=== PATIENT | female | born 1955 | race Caucasian/White ===

== ENCOUNTER → 2017-01-20 | Outpatient (CLI) | payer BC ==
[2017-01-20 08:34] LABS: CHLORIDE,CL 110 mmol/L (98-110); SODIUM,NA 141 mmol/L (136-146)
== END ==
LOC: MW.CHIM 07:33
PROVIDERS: ATTEND Internal Medicine
DX: G25.81 Restless legs syndrome (principal); R10.9 Unspecified abdominal pain; D64.9 Anemia, unspecified
CPT/HCPCS: 36415; 80053; 83540; 85025

== ENCOUNTER 2017-07-15 10:36 | Day surgery (SDC) | payer BC ==
[~2017-07-15 10:36] MED LIST: Acetaminophen/Codeine 300-30 MG Tab PO PRN; Bupivacaine 0.25% 10 ML SDV ONE; Lactated Ringers 1,000 ML IV SCH; ceFAZolin 1 GM in Premix Bag 1 BAG IV SCH
--- NOTE | 2017-07-15 11:16 | PCM.PREANE ---
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 - Review of Systems General: No Symptoms Pulmonary: No Symptoms Cardiovascular: No Symptoms Gastrointestinal: Other (PUD and GERD) Neurological: Difficulty Walking Other: Reports: Anxiety - Physical Assessment NPO Status Date: 07/14/17 NPO Status Time: 22:00 Height: 5 ft 7 in Weight: 179 lb ASA Class: 2 Mental Status: Alert & Oriented x3 Airway Class: Mallampati = 1 Dentition: Reports: Normal Dentition (protuberant upper frontals) Thyro-Mental Finger Breadths: 3 Mouth Opening Finger Breadths: 3 ROM/Head Extension: Full Lungs: Clear to Auscultation, Normal Respiratory Effort Cardiovascular: Regular Rate, Regular Rhythm, No Murmurs - Allergies Allergies/Adverse Reactions: Allergies Allergy/AdvReac Type Severity Reaction Status Date / Time aspirin Allergy Hives Verified 07/10/17 16:59 ibuprofen Allergy Hives Verified 07/10/17 16:59 - Blood Blood Available: No Product(s) Available: None - Anesthesia Plan Pre-Op Medication Ordered: None - Acknowledgements Anesthesia Type Planned: General Anesthesia (LMA vs OETT) Pt an Appropriate Candidate for the Planned Anesthesia: Yes Alternatives and Risks of Anesthesia Discussed w Pt/Guardian: Yes Pt/Guardian Understands and Agrees with Anesthesia Plan: Yes PreAnesthesia Questionnaire Other HEENT History: wears glasses Cardiovascular History: Reports: High Cholesterol Other Respiratory History: hx: Former smoker, QUIT '1988 Gastrointestinal History: Reports: GERD, PUD, Other (See Below) Other Gastrointestinal History: hx of Barretts Esophagus Musculoskeletal History: Reports: Arthritis, Fracture Other Musculoskeletal History: hx of fx arm Neurological History: Reports: Other (See Below) Other Neuro History: hx of motion sickness Psychiatric History: Reports: Anxiety - Past Surgical History Head Surgeries/Procedures: Reports: None HEENT Surgical History: Reports: Adenoidectomy, Tonsillectomy Female Surgical History: Reports: Hysterectomy, Other (See Below) Other Female Surgeries/Procedures: Bladder Entercystoplasty Musculoskeletal Surgical History: Reports: Other (See Below) Other Musculoskeletal Surgeries/Procedures:: ACL REPAIR LEFT KNEE - SUBSTANCE USE Smoking Status *Q: Former Smoker Days Per Week of Alcohol Use: 0 Recreational Drug Use History: No - HOME MEDS Home Medications: Home Meds ALPRAZolam [Alprazolam] 0.25 mg PO DAILY MDD 0.50 03/22/15 [History] Calcium Carbonate [Calcium] 500 mg PO DAILY 03/22/15 [History] Cetirizine HCl 10 mg PO DAILY 03/22/15 [History] Fish Oil/Borage/Flax/Om3,6,9#1 [[place] 3-6-9 Complex Softgel] 1 tab PO DAILY 05/29 [History] Magnesium Oxide [Magnesium] 500 mg PO BID 03/22/15 [History] Multivitamin [Multi-Vitamin Daily] 1 tab PO DAILY 03/22/15 [History] RABEprazole Sodium [Aciphex] 20 mg PO ACBREAKFAST 03/22/15 [History] Simvastatin 5 mg PO DAILY 03/22/15 [History] Escitalopram Oxalate 5 mg PO DAILY 07/10/17 [History] Ferrous Gluconate [Iron] 240 mg PO DAILY 07/10/17 [History] rOPINIRole HCl [Requip] 0.5 mg PO BEDTIME 07/10/17 [History] - CURRENT (IN HOUSE) MEDS Current Meds: Current Medications Acetaminophen/Codeine Phosphate (Tylenol With Codeine No.3 300mg/30mg) 1 - 2 tab PO Q6H PRN PRN Reason: Pain Cefazolin Sodium/Dextrose 1 gm (/ Premix) 50 mls @ 100 mls/hr IV ONCALL [facility] Lactated Ringer's (Ringers, Lactated) 1,000 mls @ 100 mls/hr IV ASDIRECTED [facility] Discontinued Medications Bupivacaine HCl (Sensorcaine-Mpf 0.25%) Confirm Administered Dose 10 ml .ROUTE .STK-MED ONE Stop: 07/15/17 07:54
[2017-07-15] MEDS ORDERED: Ondansetron 4 MG/2 ML SDV ONE (11:33)
[2017-07-15] MEDS ORDERED: Propofol 200 MG/20 ML SDV ONE (11:33)
[2017-07-15] MEDS ORDERED: Midazolam 1 MG/ML 2 ML SDV ONE (11:33)
[2017-07-15] MEDS ORDERED: fentaNYL 250 MCG/5 ML SDV ONE (11:34)
[2017-07-15] MEDS ORDERED: Dexamethasone 4 MG/ML 5 ML MDV ONE (12:08)
[2017-07-15] MEDS ORDERED: ePHEDrine 50 MG/ML SDV ONE (12:18)
--- NOTE | 2017-07-15 12:55 | PCM.OPNOTE ---
- General Post-Op/Procedure Note Date of Surgery/Procedure: 07/15/17 Operative Procedure(s): HWR left distal femur and tibia Post-Op Diagnosis: Retained HW left femur and tibia Anesthesia Technique: General LMA Primary Surgeon: Michelle Odonnell [employer] Teacher: Sanjuanita Black in mLs: 5 Condition: Good Free Text/Narrative:: tt=0 min Unable to dictate op note immediately due to phone system down
--- NOTE | 2017-07-15 12:58 | PCM.POSTAN ---
POST ANESTHESIA ASSESSMENT - MENTAL STATUS Mental Status: Alert, Oriented - RESPIRATORY Respiratory Status: Respiratory Rate WNL, Airway Patent, O2 Saturation Stable - CARDIOVASCULAR CV Status: Pulse Rate WNL, Blood Pressure Stable - GASTROINTESTINAL GI Status: No Symptoms - PAIN Pain Score: 0 - POST OP HYDRATION Hydration Status: Adequate & Stable
--- NOTE | 2017-07-15 14:19 | PCM48HPAN ---
Post Anesthesia Note - EVALUATION WITHIN 48HRS OF ANESTHETIC Vital Signs in Normal Range: Yes Patient Participated in Evaluation: Yes Respiratory Function Stable: Yes Airway Patent: Yes Cardiovascular Function Stable: Yes Hydration Status Stable: Yes Pain Control Satisfactory: Yes Nausea and Vomiting Control Satisfactory: Yes Mental Status Recovered: Yes
[2017-07-15 15:49] VITALS: BP 132/74
--- NOTE | 2017-07-16 10:39 | OR ---
SURGEON: Michelle Odonnell MD DATE OF PROCEDURE: 07/15/2017 PREOPERATIVE DIAGNOSIS: Retained hardware, left distal femur and proximal tibia. POSTOPERATIVE DIAGNOSES: Retained hardware, left distal femur and proximal tibia. PROCEDURE: Hardware removal, left distal femur and proximal tibia. SUPER[employer]OR [employer] DEPARTMENT: Sanjuanita Black PA-C. ANESTHESIA: General. ESTIMATED BLOOD LOSS: 5 mL. TOURNIQUET TIME: 0 minutes. COMPLICATIONS: None. DVT PROPHYLAXIS: Not indicated. IMPLANTS USED: None. BRIEF HISTORY: Jade is a 62-year-old female, who has had complaint of progressive left knee pain. She underwent a left knee ACL reconstruction approximately 30 years ago and does have retained hardware from this. She has developed degenerative changes in the knee and is considering a total knee arthroplasty in the future. Due to the placement of the hardware, this would be difficult to perform a total knee arthroplasty. I recommended removal of the hardware in a staged procedure. Risks and goals of the procedure were discussed with the patient and were documented preoperatively. She agreed to proceed. DESCRIPTION OF PROCEDURE: The patient was properly identified and brought to the operating room. She was transferred from the OR cart and placed on the operating table in a supine position. General anesthesia was administered. After adequate anesthesia was obtained, a well-padded tourniquet was applied to the left lower extremity. The left lower extremity was then prepped in standard fashion using ChloraPrep solution. It was then sterilely draped. A time-out was performed to ensure correct site and procedure. Preoperative antibiotics were given. The surgical site had been marked preoperatively. Using the C-arm image intensifier, the position of the distal femoral screws were established. A small incision was made at the site of her previous incision. Subcutaneous tissues were dissected down. The screws were identified. The proximal screw was removed along with a large washer without difficulty. The other femoral screw was also removed in a similar fashion. We then turned our attention to the tibial screw. Again, this was identified with the C-arm image intensifier. A small incision was made and the subcutaneous tissues were dissected. The tibial screw had some bony overgrowth, which was resected with a small osteotome. The screw was then removed without difficulty. Final C-arm images confirmed removal of the hardware. The wounds were then copiously irrigated with saline solution. The subcutaneous tissues were closed with 3-0 Vicryl and the skin was closed with kati. Xeroform gauze was placed over the wound and a bulky dressing was applied. She was awakened from her anesthetic and transferred back to the operating room cart. She was brought to recovery room in stable condition. All needle and sponge counts were correct. LASHAE GRISSOM /[id number]
--- NOTE | 2017-07-20 16:49 | CR ---
EXAMINATION: Left knee HISTORY: Hardware removal COMPARISON: 02/10/2017 TECHNIQUE: Single view FINDINGS/IMPRESSION: Postoperative control film demonstrates interval removal of distal femoral and p roximal tibial screws.
== END 2017-07-15 14:30 | disposition home or self-care (01) ==
LOC: MW.SDS 10:36
PROVIDERS: ATTEND Orthopaedic Surgery
DX: T84.84XA Pain due to internal orthopedic prosthetic devices, implants and grafts, initial encounter (principal); F41.9 Anxiety disorder, unspecified; K21.9 Gastro-esophageal reflux disease without esophagitis; E66.9 Obesity, unspecified; G43.109 Migraine with aura, not intractable, without status migrainosus; M17.32 Unilateral post-traumatic osteoarthritis, left knee; G25.81 Restless legs syndrome; G47.30 Sleep apnea, unspecified; E78.00 Pure hypercholesterolemia, unspecified; Z87.891 Personal history of nicotine dependence; Z86.010 Personal history of colon polyps; Z79.899 Other long term (current) drug therapy; Z88.6 Allergy status to analgesic agent; Z90.710 Acquired absence of both cervix and uterus; Z90.89 Acquired absence of other organs; Z98.890 Other specified postprocedural states; Z68.28 Body mass index [BMI] 28.0-28.9, adult
CPT/HCPCS: 20680; J1100; J2250; J2405; J3010; 01400; 76000; 76000-26; 88300; J2704

== ENCOUNTER 2017-11-16 06:49 | Inpatient (IN) | payer BC ==
[~2017-11-16 06:49] MED LIST changes: +Acetaminophen 1,000 MG in Premix Bag 1 BAG IV SCH; -Acetaminophen/Codeine 300-30 MG Tab PO PRN; -Bupivacaine 0.25% 10 ML SDV ONE; +Famotidine 20 MG/2 ML SDV IVPUSH SCH; +Ketorolac 30 MG/ML SDV IVPUSH SCH; -Lactated Ringers 1,000 ML IV SCH; +Scopolamine 1.5 MG Transdermal Patch TRDERM SCH; -ceFAZolin 1 GM in Premix Bag 1 BAG IV SCH; +oxyCODONE ER 20 MG TAB.ER PO SCH
[2017-11-16] MEDS: Lactated Ringers 1,000 ML IV SCH ×2 (07:29→22:16)
[2017-11-16] MEDS ORDERED: Lidocaine 2% 5 ML SDV ONE (07:38)
[2017-11-16] MEDS ORDERED: Propofol 200 MG/20 ML SDV ONE ×2 (07:38→09:12)
[2017-11-16] MEDS ORDERED: Midazolam 1 MG/ML 2 ML SDV ONE (07:39)
[2017-11-16] MEDS ORDERED: ePHEDrine 50 MG/ML SDV ONE (07:39)
[2017-11-16] MEDS ORDERED: fentaNYL 100 MCG/2 ML SDV ONE ×2 (07:39→08:54)
--- NOTE | 2017-11-16 07:44 | PCM.PREANE ---
Preanesthetic Assessment - Anesthesia/Transfusion/Family Hx Anesthesia History: Prior Anesthesia Reaction Type of Anesthesia Reaction: Excessive Nausea/Vomiting Other Type of Anesthesia Reaction Comment: Denies any known problem in past, "Yes to Motion Sickness" Family History of Anesthesia Reaction: No Transfusion History: No Prior Transfusion(s) Intubation History: Unknown - Review of Systems General: No Symptoms Pulmonary: No Symptoms Cardiovascular: No Symptoms Gastrointestinal: No Symptoms Neurological: No Symptoms Other: Reports: None - Physical Assessment NPO Status Date: 11/17/17 Height: 1.7 m Weight: 80.739 kg ASA Class: 2 Mental Status: Alert & Oriented x3 Airway Class: Mallampati = 2 Dentition: Reports: Normal Dentition ROM/Head Extension: Full Lungs: Clear to Auscultation, Normal Respiratory Effort Cardiovascular: Regular Rate, Regular Rhythm - Allergies Allergies/Adverse Reactions: Allergies Allergy/AdvReac Type Severity Reaction Status Date / Time aspirin Allergy Hives Verified 11/11/17 08:47 ibuprofen Allergy Hives Verified 11/11/17 08:47 - Acknowledgements Anesthesia Type Planned: Spinal (note: hives from all NSAIDS and aspirin, NO TORADOL) Pt an Appropriate Candidate for the Planned Anesthesia: Yes Alternatives and Risks of Anesthesia Discussed w Pt/Guardian: Yes Pt/Guardian Understands and Agrees with Anesthesia Plan: Yes PreAnesthesia Questionnaire Other HEENT History: wears glasses Cardiovascular History: Reports: High Cholesterol Other Respiratory History: hx: Former smoker, QUIT '1988 Gastrointestinal History: Reports: GERD, PUD, Other (See Below) Other Gastrointestinal History: hx of Barretts Esophagus Musculoskeletal History: Reports: Arthritis, Fracture Other Musculoskeletal History: hx of fx arm Neurological History: Reports: Other (See Below) Other Neuro History: hx of motion sickness Psychiatric History: Reports: Anxiety Endocrine/Metabolic History: Reports: None Hematologic History: Reports: None Immunologic History: Reports: None Oncologic (Cancer) History: Reports: None Dermatologic History: Reports: None - Past Surgical History Other Musculoskeletal Surgeries/Procedures:: ACL REPAIR LEFT KNEE - SUBSTANCE USE Smoking Status *Q: Former Smoker Days Per Week of Alcohol Use: 0 Recreational Drug Use History: No - HOME MEDS Home Medications: Home Meds ALPRAZolam [Alprazolam] 0.25 mg PO DAILY MDD 0.50 03/22/15 [History] Cetirizine HCl 10 mg PO DAILY 03/22/15 [History] Fish Oil/Borage/Flax/Om3,6,9#1 [[place] 3-6-9 Complex Softgel] 1 tab PO DAILY 05/29 [History] Magnesium Oxide [Magnesium] 500 mg PO BID 03/22/15 [History] Multivitamin [Multi-Vitamin Daily] 1 tab.chew CHEW DAILY 03/22/15 [History] RABEprazole Sodium [Aciphex] 20 mg PO ACBREAKFAST 03/22/15 [History] Simvastatin 5 mg PO DAILY 03/22/15 [History] Escitalopram Oxalate 5 mg PO DAILY 07/10/17 [History] Ferrous Gluconate [Iron] 240 mg PO DAILY 07/10/17 [History] rOPINIRole HCl [Requip] 2 tab PO BEDTIME 07/10/17 [History] Ca Carbonate/Vitamin D3/Vit K [Calcium + D Soft Chewable Tab] 1 tab.chew CHEW DAILY 11/11/17 [History] - CURRENT (IN HOUSE) MEDS Current Meds: Current Medications Famotidine (Pepcid) 40 mg IVPUSH ONARRIVE [facility] Last Admin: 11/16/17 07:29 Dose: 40 mg Acetaminophen 1,000 mg/ Premix 100 mls @ 400 mls/hr IV ONARRIVE [facility] Last Admin: 11/16/17 07:28 Dose: 400 mls/hr Cefazolin Sodium/Dextrose 2 gm (/ Premix) 50 mls @ 100 mls/hr IV ONCALL [facility] Ropivacaine 49.25 ml/Ketorolac Tromethamine 30 mg/Epinephrine HCl 0.5 mg/ Clonidine HCl 80 mcg/ Sodium Chloride 100 mls @ 50 mls/sec INJECT ASDIRECTED [facility] Lactated Ringer's (Ringers, Lactated) 1,000 mls @ 100 mls/hr IV ASDIRECTED [facility] Last Admin: 11/16/17 07:29 Dose: 100 mls/hr Tranexamic Acid 4,000 mg/ (Sodium Chloride) 140 mls @ 600 mls/hr IV ASDIRECTED [facility] Ketorolac Tromethamine (Toradol) 30 mg IVPUSH ONARRIVE [facility] Last Admin: 11/16/17 07:29 Dose: 30 mg Oxycodone HCl (Oxycontin) 20 mg PO ONARRIVE [facility] Last Admin: 11/16/17 07:29 Dose: 20 mg Scopolamine (Transderm-Scop) 1.5 mg TRDERM ONARRIVE [facility] Last Admin: 11/16/17 07:28 Dose: 1.5 mg Discontinued Medications Ephedrine Sulfate (Ephedrine Sulfate) Confirm Administered Dose 50 mg .ROUTE .STK-MED ONE Stop: 11/16/17 07:40 Fentanyl (Sublimaze) Confirm Administered Dose 100 mcg .ROUTE .STK-MED ONE Stop: 11/16/17 07:40 Lidocaine (Xylocaine-Mpf 2%) Confirm Administered Dose 10 ml .ROUTE .STK-MED ONE Stop: 11/16/17 07:39 Midazolam HCl (Versed 1 Mg/Ml) Confirm Administered Dose 2 mg .ROUTE .STK-MED ONE Stop: 11/16/17 07:40 Propofol (Diprivan 20 Ml) Confirm Administered Dose 400 mg .ROUTE .STK-MED ONE Stop: 11/16/17 07:39 Tranexamic Acid (Cyklokapron) Confirm Administered Dose 4,000 mg .ROUTE .STK- MED ONE Stop: 11/16/17 07:23
[2017-11-16] MEDS ORDERED: ceFAZolin 2 GM in Premix Bag 1 BAG IV SCH (08:00)
[2017-11-16] MEDS ORDERED: Ropivacaine 49.25 ML, Ketorolac 30 MG, EPINEPHrine 0.5 MG, cloNIDine 80 MCG in Sodium C... INJECT SCH (08:00)
[2017-11-16] MEDS ORDERED: Tranexamic Acid 4,000 MG in Sodium Chloride 0.9% 100 ML IV SCH (08:00)
[2017-11-16] MEDS ORDERED: fentaNYL 100 MCG/2 ML SDV IVPUSH PRN ×2 (08:42→09:36)
[2017-11-16] MEDS ORDERED: Ropivacaine 49.25 ML, EPINEPHrine 0.5 MG, cloNIDine 80 MCG in Sodium Chloride 0.9% 48.4... INJECT SCH (08:45)
[2017-11-16] MEDS ORDERED: Aluminum Hydroxide/Magnesium Hydroxide/Simethicone Susp 30 ML Cup PO PRN (08:49)
[2017-11-16] MEDS ORDERED: Bisacodyl 10 MG Supp RECTAL PRN (08:49)
[2017-11-16] MEDS ORDERED: diphenhydrAMINE 25 MG Cap PO PRN (08:49)
[2017-11-16] MEDS ORDERED: Ferrous Sulfate 325 MG Tab PO SCH (09:00)
[2017-11-16] MEDS ORDERED: Morphine PF 30 MG/30 ML PCA Vial IV SCH (09:00)
[2017-11-16] MEDS ORDERED: HYDROmorphone 2 MG/ML Syringe IVPUSH ONE (09:36)
--- NOTE | 2017-11-16 11:04 | PCM.OPNOTE ---
- General Post-Op/Procedure Note Date of Surgery/Procedure: 11/16/17 Operative Procedure(s): L TKA Post-Op Diagnosis: DJD left knee Anesthesia Technique: Moderate Sedation, Spinal Primary Surgeon: Michelle Odonnell Inspector [employer]: Airam Enriquez in mLs: 50 Condition: Good Free Text/Narrative:: tt=55 min #[id number] Intake & Output 11/15/17 11/16/17 11/16/17 22:59 06:59 14:59 Output Total 600 Balance -600
[2017-11-16] MEDS: Calcium Carbonate/Vitamin D3 1500 MG-400 Units Tab PO SCH (14:28)
[2017-11-16] MEDS: Docusate Sodium 100 MG Cap PO SCH ×2 (14:28→20:49)
[2017-11-16] MEDS: Fish Oil/Omega-3 Fatty Acids 1 Gm Cap PO SCH (14:28)
[2017-11-16] MEDS: Multivitamin Tab PO SCH (14:29)
[2017-11-16] MEDS: Magnesium Oxide 400 MG Tab PO SCH ×2 (14:29→20:49)
[2017-11-16] MEDS: Simvastatin 10 MG Tab PO SCH (14:29)
[2017-11-16] MEDS: Cetirizine 10 MG Tab PO SCH (14:29)
[2017-11-16] MEDS: Escitalopram 10 MG Tab PO SCH (14:29)
[2017-11-16] MEDS: ALPRAZolam 0.25 MG Tab PO SCH (14:29)
[2017-11-16] MEDS: Acetaminophen 1,000 MG in Premix Bag 1 BAG IV SCH ×2 (14:34→20:45)
--- NOTE | 2017-11-16 16:34 | CR ---
EXAMINATION: Left knee HISTORY: TKA COMPARISON: MRI dated 09/15/2017 TECHNIQUE: 2 views FINDINGS/IMPRESSION: Left total hardware is demonstrated in good position and alignment. Operative so ft tissue changes are noted.
[2017-11-16] MEDS: Ondansetron 4 MG/2 ML SDV IV PRN (16:40)
[2017-11-16] MEDS: ceFAZolin 2 GM in Premix Bag 1 BAG IV SCH (16:44)
[2017-11-16] MEDS: oxyCODONE 5 MG Tab PO PRN ×2 (16:58→22:12)
[2017-11-16] MEDS ORDERED: Acetaminophen/oxyCODONE 325-5 MG Tab ONE (18:58)
[2017-11-16] MEDS ORDERED: oxyCODONE ER 20 MG TAB.ER PO SCH (21:00)
[2017-11-16] MEDS ORDERED: rOPINIRole 0.5 MG Tab PO SCH (21:00)
[2017-11-16] MEDS: rOPINIRole 1 MG Tab PO SCH (21:43)
[2017-11-17] MEDS: ceFAZolin 2 GM in Premix Bag 1 BAG IV SCH (00:40)
[2017-11-17] MEDS: Ondansetron 4 MG/2 ML SDV IV PRN ×2 (01:20→07:22)
[2017-11-17] MEDS: Acetaminophen 1,000 MG in Premix Bag 1 BAG IV SCH (01:23)
[2017-11-17] MEDS: oxyCODONE 5 MG Tab PO PRN (05:22)
[2017-11-17] MEDS: Omeprazole 20 MG Cap.CR PO SCH (07:08)
[2017-11-17] MEDS ORDERED: Promethazine 25 MG/ML SDV IM PRN (07:59)
[2017-11-17] MEDS ORDERED: Morphine 10 MG/ML Syringe IVPUSH PRN (08:00)
[2017-11-17] MEDS: Fish Oil/Omega-3 Fatty Acids 1 Gm Cap PO SCH (08:04)
--- NOTE | 2017-11-17 08:04 | PCM.SURGPN ---
<Airam Enriquez R - Last Filed: 11/17/17 08:00> - General Info Date of Service: 11/17/17 Date of Surgery/Procedure: 11/16/17 POD#: 1 Functional Status: Denies: Pain Controlled, Tolerating Diet - Review of Systems Gastrointestinal: Reports: Nausea. Denies: Vomiting Musculoskeletal: Reports: Leg Pain Systems Review Comment:: pt resting in bed c/o LLE pain and nausea has not asked for much pain medication because of nausea zofran is helpful but still nauseated has not eaten since yesterday still looking for d/ch to home today - Patient Data Vitals - Most Recent: Last Vital Signs Temp 98.3 F 11/17/17 04:00 Pulse 67 11/17/17 04:00 Resp 16 11/17/17 04:00 BP 120/71 11/17/17 04:00 Pulse Ox 96 11/17/17 04:00 Weight - Most Recent: 80.73 kg I&O - Last 24 Hours: Intake & Output 11/16/17 11/17/17 11/17/17 22:59 06:59 14:59 Intake Total 1520 50 Output Total 1175 Balance 345 50 Lab Results Last 24 Hrs: Laboratory Results - last 24 hr 11/16/17 11/17/17 Range/Units 07:50 06:33 Hgb 12.5 (12.0-16.0) g/dL Hct 37.7 (36.0-46.0) % Blood Type A POSITIVE Antibody Screen NEGATIVE Med Orders - Current: Current Medications Al Hydroxide/Mg Hydroxide (Mag-Al Plus) 30 ml PO Q4H PRN PRN Reason: indigestion Alprazolam (Xanax) 0.25 mg PO DAILY [facility] Last Admin: 11/16/17 14:29 Dose: Not Given Apixaban (Eliquis) 2.5 mg PO DAILY [facility] Bisacodyl (Dulcolax) 10 mg RECTAL DAILY PRN PRN Reason: Constipation Calcium Carbonate (Caltrate 600+D 1500 Mg-400 Units) 1 tab PO DAILY [facility] Last Admin: 11/16/17 14:28 Dose: Not Given Cetirizine HCl (Zyrtec) 10 mg PO DAILY [facility] Last Admin: 11/16/17 14:29 Dose: Not Given Diphenhydramine HCl (Benadryl) 25 - 50 mg PO Q6H PRN PRN Reason: Itching Docusate Sodium (Colace) 100 mg PO BID [facility] Last Admin: 11/16/17 20:49 Dose: 100 mg Escitalopram Oxalate (Lexapro) 5 mg PO DAILY [facility] Last Admin: 11/16/17 14:29 Dose: Not Given Famotidine (Pepcid) 40 mg IVPUSH ONARRIVE [facility] Last Admin: 11/16/17 07:29 Dose: 40 mg Fentanyl (Sublimaze) 50 mcg IVPUSH Q5M PRN PRN Reason: Pain (severe 7-10) Stop: 11/17/17 08:42 Fentanyl (Sublimaze) 50 mcg IVPUSH Q5M PRN PRN Reason: Pain (severe 7-10) Stop: 11/17/17 09:36 Ferrous Sulfate (Ferrous Sulfate) 325 mg PO DAILY [facility] Fish Oil (Fish Oil) 1 gm PO DAILY [facility] Last Admin: 11/16/17 14:28 Dose: Not Given Acetaminophen 1,000 mg/ Premix 100 mls @ 400 mls/hr IV ONARRIVE [facility] Last Admin: 11/16/17 07:28 Dose: 400 mls/hr Cefazolin Sodium/Dextrose 2 gm (/ Premix) 50 mls @ 100 mls/hr IV ONCALL [facility] Last Admin: 11/16/17 16:44 Dose: 100 mls/hr Lactated Ringer's (Ringers, Lactated) 1,000 mls @ 100 mls/hr IV ASDIRECTED [facility] Last Admin: 11/16/17 22:16 Dose: 100 mls/hr Tranexamic Acid 4,000 mg/ (Sodium Chloride) 140 mls @ 600 mls/hr IV ASDIRECTED [facility] Ropivacaine 49.25 ml/Epinephrine HCl 0.5 mg/Clonidine HCl 80 mcg/ Sodium Chloride 99 mls @ 50 mls/min INJECT ASDIRECTED [facility] Magnesium Oxide (Magnesium Oxide) 400 mg PO BID [facility] Last Admin: 11/16/17 20:49 Dose: 400 mg Morphine Sulfate (Morphine Heel Padder 30 Mg In 30 Ml) 30 mg IV ASDIRECTED [facility] PRN Reason: Protocol Stop: 11/17/17 08:00 Last Admin: 11/16/17 11:22 Dose: 30 mg Morphine Sulfate (Morphine) 1 - 3 mg IVPUSH Q3H PRN PRN Reason: Pain Multivitamins/Minerals/Vitamin C (Tab-A-Fermin) 1 tab PO DAILY [facility] Last Admin: 11/16/17 14:29 Dose: Not Given Omeprazole (Omeprazole) 20 mg PO ACBREAKFAST [facility] Last Admin: 11/17/17 07:08 Dose: 20 mg Ondansetron HCl (Zofran) 4 mg IV Q6HR PRN PRN Reason: NAUSEA/VOMITING Last Admin: 11/17/17 07:22 Dose: 4 mg Oxycodone HCl (Oxycontin) 20 mg PO ONARRIVE [facility] Last Admin: 11/16/17 07:29 Dose: 20 mg Oxycodone HCl (Oxycodone) 5 - 10 mg PO Q4H PRN PRN Reason: Pain Stop: 11/17/17 08:00 Last Admin: 11/17/17 05:22 Dose: 5 mg Oxycodone/Acetaminophen (Percocet 325-5 Mg) 1 - 2 tab PO Q4H PRN PRN Reason: Pain Ropinirole HCl (Requip) 0.5 mg PO BEDTIME [facility] Last Admin: 11/16/17 21:43 Dose: 0.5 mg Scopolamine (Transderm-Scop) 1.5 mg TRDERM ONARRIVE [facility] Last Admin: 11/16/17 07:28 Dose: 1.5 mg Simvastatin (Zocor) 5 mg PO DAILY [facility] Last Admin: 11/16/17 14:29 Dose: Not Given Discontinued Medications Ephedrine Sulfate (Ephedrine Sulfate) Confirm Administered Dose 50 mg .ROUTE .STK-MED ONE Stop: 11/16/17 07:40 Fentanyl (Sublimaze) Confirm Administered Dose 100 mcg .ROUTE .STK-MED ONE Stop: 11/16/17 07:40 Fentanyl (Sublimaze) Confirm Administered Dose 100 mcg .ROUTE .STK-MED ONE Stop: 11/16/17 08:55 Ferrous Sulfate (Ferrous Sulfate) 32,358 mg PO DAILY [facility] Last Admin: 11/16/17 14:30 Dose: Not Given Hydromorphone HCl (Dilaudid) 0 mg IVPUSH ONETIME ONE Stop: 11/16/17 09:37 Last Admin: 11/16/17 14:29 Dose: Not Given Ropivacaine 49.25 ml/Ketorolac Tromethamine 30 mg/Epinephrine HCl 0.5 mg/ Clonidine HCl 80 mcg/ Sodium Chloride 100 mls @ 50 mls/sec INJECT ASDIRECTED [facility] Acetaminophen 1,000 mg/ Premix 100 mls @ 400 mls/hr IV Q6H [facility] Stop: 11/17/17 02:14 Last Admin: 11/17/17 01:23 Dose: 400 mls/hr Cefazolin Sodium/Dextrose 2 gm (/ Premix) 50 mls @ 100 mls/hr IV Q8H [facility] Stop: 11/17/17 01:29 Last Infusion: 11/17/17 01:15 Dose: Infused Ketorolac Tromethamine (Toradol) 30 mg IVPUSH ONARRIVE [facility] Last Admin: 11/16/17 07:29 Dose: 30 mg Lidocaine (Xylocaine-Mpf 2%) Confirm Administered Dose 10 ml .ROUTE .STK-MED ONE Stop: 11/16/17 07:39 Midazolam HCl (Versed 1 Mg/Ml) Confirm Administered Dose 2 mg .ROUTE .STK-MED ONE Stop: 11/16/17 07:40 Oxycodone HCl (Oxycontin) 20 mg PO Q12HR [facility] Last Admin: 11/16/17 20:49 Dose: 20 mg Oxycodone/Acetaminophen (Percocet 325-5 Mg) Confirm Administered Dose 2 tab .ROUTE .STK-MED ONE Stop: 11/16/17 18:59 Last Admin: 11/16/17 19:03 Dose: Not Given Propofol (Diprivan 20 Ml) Confirm Administered Dose 400 mg .ROUTE .STK-MED ONE Stop: 11/16/17 07:39 Propofol (Diprivan 20 Ml) Confirm Administered Dose 200 mg .ROUTE .STK-MED ONE Stop: 11/16/17 09:13 Ropinirole HCl (Requip) 0.5 mg PO BEDTIME [facility] Tranexamic Acid (Cyklokapron) Confirm Administered Dose 4,000 mg .ROUTE .STK- MED ONE Stop: 11/16/17 07:23 - Exam Wound/Incisions: Dressing Dry and Intact General: Alert, Oriented Cardiovascular: Regular Rate, Regular Rhythm Extremities: Other (LLE - at/ehl/gastroc 5/5, dp 2+, sensation intact distally) Physical Findings Comment:: vss, afeb uo 1800+mL hgb 12.5 - Problem List Review Problem List Initiated/Reviewed/Updated: Yes - My Orders Last 24 Hours: Active Orders 24 hr Category Date Time Status Dressing Change [Wound Care] [RC] Q12H Care 11/16/17 08:49 Active Insert Urinary Catheter [OM.PC] Q24H Care 11/16/17 08:00 Ordered Intake and Output [RC] ASDIRECTED Care 11/16/17 08:49 Active Neurovascular Check [RC] Q2HR Care 11/16/17 08:49 Active Notify Provider Vital Signs [RC] ASDIRECTED Care 11/16/17 08:49 Active RT Incentive Spirometry [RC] ASDIRECTED Care 11/16/17 08:49 Active Vital Signs [RC] Q4H Care 11/16/17 08:49 Active PT Evaluation and Treatment [CONS] Routine Cons 11/16/17 08:48 Active HEMOGLOBIN/HEMATOCRIT,HH [HEME] DAILY Lab 11/18/17 06:00 Ordered HEMOGLOBIN/HEMATOCRIT,HH [HEME] DAILY Lab 11/19/17 06:00 Ordered ALPRAZolam [Xanax] Med 11/16/17 09:00 Active 0.25 mg PO DAILY Acetaminophen/oxyCODONE [Percocet 325-5 MG] Med 11/17/17 08:00 Active 1 - 2 tab PO Q4H PRN Alum Hydrox/Mag Hydrox/Simeth [Mag-Al Plus] Med 11/16/17 08:49 Active 30 ml PO Q4H PRN Apixaban [Eliquis] Med 11/17/17 09:00 Active 2.5 mg PO DAILY Bisacodyl [Dulcolax] Med 11/16/17 08:49 Active 10 mg RECTAL DAILY PRN Calcium Carbonate/Vitamin D3 [Caltrate 600+D 1500 MG- Med 11/16/17 09:00 Active 400 Units] 1 tab PO DAILY Cetirizine [ZyrTEC] Med 11/16/17 09:00 Active 10 mg PO DAILY Docusate Sodium [Colace] Med 11/16/17 09:00 Active 100 mg PO BID Escitalopram [Lexapro] Med 11/16/17 09:00 Active 5 mg PO DAILY Ferrous Sulfate Med 11/17/17 09:00 Active 325 mg PO DAILY Fish Oil/Hensley-3 Fatty Acids [Fish Oil] Med 11/16/17 09:00 Active 1 gm PO DAILY Magnesium Oxide Med 11/16/17 09:00 Active 400 mg PO BID Morphine Med 11/17/17 08:00 Active 1 - 3 mg IVPUSH Q3H PRN Morphine PF [Morphine GENERAL I [employer] 30 MG in 30 ML] Med 11/16/17 09:00 Active 30 mg IV ASDIRECTED Multivitamins [Tab-A-Fermin] Med 11/16/17 09:00 Active 1 tab PO DAILY Omeprazole Med 11/17/17 07:30 Active 20 mg PO ACBREAKFAST Ondansetron [Zofran] Med 11/16/17 08:49 Active 4 mg IV Q6HR PRN Promethazine [Phenergan] Med 11/17/17 07:59 Ordered 25 mg IM Q6H PRN Ropivacaine [Naropin 0.2%] 49.25 ml Med 11/16/17 08:45 Active EPINEPHrine [Adrenalin] 0.5 mg cloNIDine [Duraclon] 80 mcg Sodium Chloride 0.9% [Normal Saline] 48.45 ml INJECT ASDIRECTED Simvastatin [Zocor] Med 11/16/17 09:00 Active 5 mg PO DAILY Tranexamic Acid [Cyklokapron] 4,000 mg Med 11/16/17 08:00 Active Sodium Chloride 0.9% [Normal Saline] 100 ml IV ASDIRECTED ceFAZolin [Ancef] 2 gm Med 11/16/17 08:00 Active Premix Bag 1 bag IV ONCALL diphenhydrAMINE [Benadryl] Med 11/16/17 08:49 Active 25 - 50 mg PO Q6H PRN fentaNYL [Sublimaze] Med 11/16/17 08:42 Active 50 mcg IVPUSH Q5M PRN fentaNYL [Sublimaze] Med 11/16/17 09:36 Active 50 mcg IVPUSH Q5M PRN oxyCODONE Med 11/16/17 08:49 Active 5 - 10 mg PO Q4H PRN oxyCODONE ER [OxyCONTIN] Med 11/16/17 21:00 Stop Req 20 mg PO Q12HR rOPINIRole [Requip] Med 11/16/17 21:00 Active 0.5 mg PO BEDTIME Ice Therapy [OM.PC] Routine Oth 11/16/17 08:49 Ordered Medication Orders Al Hydroxide/Mg Hydroxide (Mag-Al Plus) 30 ml PO Q4H PRN PRN Reason: indigestion Alprazolam (Xanax) 0.25 mg PO DAILY [facility] Last Admin: 11/16/17 14:29 Dose: Not Given Apixaban (Eliquis) 2.5 mg PO DAILY [facility] Bisacodyl (Dulcolax) 10 mg RECTAL DAILY PRN PRN Reason: Constipation Calcium Carbonate (Caltrate 600+D 1500 Mg-400 Units) 1 tab PO DAILY [facility] Last Admin: 11/16/17 14:28 Dose: Not Given Cetirizine HCl (Zyrtec) 10 mg PO DAILY [facility] Last Admin: 11/16/17 14:29 Dose: Not Given Diphenhydramine HCl (Benadryl) 25 - 50 mg PO Q6H PRN PRN Reason: Itching Docusate Sodium (Colace) 100 mg PO BID [facility] Last Admin: 11/16/17 20:49 Dose: 100 mg Admin: 11/16/17 14:28 Dose: Not Given Escitalopram Oxalate (Lexapro) 5 mg PO DAILY [facility] Last Admin: 11/16/17 14:29 Dose: Not Given Famotidine (Pepcid) 40 mg IVPUSH ONARRIVE [facility] Last Admin: 11/16/17 07:29 Dose: 40 mg Fentanyl (Sublimaze) 50 mcg IVPUSH Q5M PRN PRN Reason: Pain (severe 7-10) Stop: 11/17/17 08:42 Fentanyl (Sublimaze) 50 mcg IVPUSH Q5M PRN PRN Reason: Pain (severe 7-10) Stop: 11/17/17 09:36 Ferrous Sulfate (Ferrous Sulfate) 325 mg PO DAILY [facility] Fish Oil (Fish Oil) 1 gm PO DAILY [facility] Last Admin: 11/16/17 14:28 Dose: Not Given Acetaminophen 1,000 mg/ Premix 100 mls @ 400 mls/hr IV ONARRIVE [facility] Last Admin: 11/16/17 07:28 Dose: 400 mls/hr Cefazolin Sodium/Dextrose 2 gm (/ Premix) 50 mls @ 100 mls/hr IV ONCALL [facility] Last Admin: 11/16/17 16:44 Dose: 100 mls/hr Lactated Ringer's (Ringers, Lactated) 1,000 mls @ 100 mls/hr IV ASDIRECTED [facility] Last Admin: 11/16/17 22:16 Dose: 100 mls/hr Infusion: 11/16/17 22:15 Dose: 100 mls/hr Admin: 11/16/17 07:29 Dose: 100 mls/hr Tranexamic Acid 4,000 mg/ (Sodium Chloride) 140 mls @ 600 mls/hr IV ASDIRECTED [facility] Ropivacaine 49.25 ml/Epinephrine HCl 0.5 mg/Clonidine HCl 80 mcg/ Sodium Chloride 99 mls @ 50 mls/min INJECT ASDIRECTED [facility] Magnesium Oxide (Magnesium Oxide) 400 mg PO BID [facility] Last Admin: 11/16/17 20:49 Dose: 400 mg Admin: 11/16/17 14:29 Dose: Not Given Morphine Sulfate (Morphine Heel Padder 30 Mg In 30 Ml) 30 mg IV ASDIRECTED [facility] PRN Reason: Protocol Stop: 11/17/17 08:00 Last Admin: 11/16/17 11:22 Dose: 30 mg Morphine Sulfate (Morphine) 1 - 3 mg IVPUSH Q3H PRN PRN Reason: Pain Multivitamins/Minerals/Vitamin C (Tab-A-Fermin) 1 tab PO DAILY [facility] Last Admin: 11/16/17 14:29 Dose: Not Given Omeprazole (Omeprazole) 20 mg PO ACBREAKFAST [facility] Last Admin: 11/17/17 07:08 Dose: 20 mg Ondansetron HCl (Zofran) 4 mg IV Q6HR PRN PRN Reason: NAUSEA/VOMITING Last Admin: 11/17/17 07:22 Dose: 4 mg Admin: 11/17/17 01:20 Dose: 4 mg Admin: 11/16/17 16:40 Dose: 4 mg Oxycodone HCl (Oxycontin) 20 mg PO ONARRIVE [facility] Last Admin: 11/16/17 07:29 Dose: 20 mg Oxycodone HCl (Oxycodone) 5 - 10 mg PO Q4H PRN PRN Reason: Pain Stop: 11/17/17 08:00 Last Admin: 11/17/17 05:22 Dose: 5 mg Admin: 11/16/17 22:12 Dose: 5 mg Admin: 11/16/17 16:58 Dose: 10 mg Oxycodone/Acetaminophen (Percocet 325-5 Mg) 1 - 2 tab PO Q4H PRN PRN Reason: Pain Ropinirole HCl (Requip) 0.5 mg PO BEDTIME [facility] Last Admin: 11/16/17 21:43 Dose: 0.5 mg Scopolamine (Transderm-Scop) 1.5 mg TRDERM ONARRIVE [facility] Last Admin: 11/16/17 07:28 Dose: 1.5 mg Simvastatin (Zocor) 5 mg PO DAILY [facility] Last Admin: 11/16/17 14:29 Dose: Not Given - Assessment Assessment (Free Text/Narrative):: POD#1 L TKA - Plan Plan (Free Text/Narrative):: DC GENERAL I [employer], oxycodone, tylenol, oxycontin morphine IV prn breakthrough pain percocet 5/325 for pain management eliquis 2.5mg po daily for dvt prophylaxis add phenergan for nausea relief PT today if pt's nausea and pain improves, PO intake improves, and able to participate in PT, may still consider d/ch to home today likely keep today for pain control, nausea improvement, and PT, d/ch to home tomorrow <Michelle Odonnell R - Last Filed: 11/17/17 15:52> - Patient Data Vitals - Most Recent: Last Vital Signs Temp 96.8 F 11/17/17 11:52 Pulse 76 11/17/17 11:52 Resp 20 11/17/17 11:52 BP 136/76 11/17/17 11:52 Pulse Ox 97 11/17/17 11:52 I&O - Last 24 Hours: Intake & Output 11/17/17 11/17/17 11/17/17 06:59 14:59 22:59 Intake Total 550 Output Total 850 Balance -300 Lab Results Last 24 Hrs: Laboratory Results - last 24 hr 11/17/17 Range/Units 06:33 Hgb 12.5 (12.0-16.0) g/dL Hct 37.7 (36.0-46.0) % Med Orders - Current: Current Medications Al Hydroxide/Mg Hydroxide (Mag-Al Plus) 30 ml PO Q4H PRN PRN Reason: indigestion Alprazolam (Xanax) 0.25 mg PO DAILY [facility] Last Admin: 11/17/17 08:06 Dose: 0.25 mg Apixaban (Eliquis) 2.5 mg PO DAILY [facility] Last Admin: 11/17/17 08:05 Dose: 2.5 mg Bisacodyl (Dulcolax) 10 mg RECTAL DAILY PRN PRN Reason: Constipation Calcium Carbonate (Caltrate 600+D 1500 Mg-400 Units) 1 tab PO DAILY [facility] Last Admin: 11/17/17 08:05 Dose: 1 tab Cetirizine HCl (Zyrtec) 10 mg PO DAILY [facility] Last Admin: 11/17/17 08:05 Dose: 10 mg Diphenhydramine HCl (Benadryl) 25 - 50 mg PO Q6H PRN PRN Reason: Itching Docusate Sodium (Colace) 100 mg PO BID [facility] Last Admin: 11/17/17 08:05 Dose: 100 mg Escitalopram Oxalate (Lexapro) 5 mg PO DAILY [facility] Last Admin: 11/17/17 08:05 Dose: 5 mg Famotidine (Pepcid) 40 mg IVPUSH ONARRIVE [facility] Last Admin: 11/16/17 07:29 Dose: 40 mg Ferrous Sulfate (Ferrous Sulfate) 325 mg PO DAILY [facility] Last Admin: 11/17/17 08:05 Dose: 325 mg Fish Oil (Fish Oil) 1 gm PO DAILY [facility] Last Admin: 11/17/17 08:04 Dose: 1 gm Acetaminophen 1,000 mg/ Premix 100 mls @ 400 mls/hr IV ONARRIVE [facility] Last Admin: 11/16/17 07:28 Dose: 400 mls/hr Cefazolin Sodium/Dextrose 2 gm (/ Premix) 50 mls @ 100 mls/hr IV ONCALL [facility] Last Admin: 11/16/17 16:44 Dose: 100 mls/hr Tranexamic Acid 4,000 mg/ (Sodium Chloride) 140 mls @ 600 mls/hr IV ASDIRECTED [facility] Ropivacaine 49.25 ml/Epinephrine HCl 0.5 mg/Clonidine HCl 80 mcg/ Sodium Chloride 99 mls @ 50 mls/min INJECT ASDIRECTED [facility] Magnesium Oxide (Magnesium Oxide) 400 mg PO BID [facility] Last Admin: 11/17/17 08:05 Dose: 400 mg Morphine Sulfate (Morphine) 1 - 3 mg IVPUSH Q3H PRN PRN Reason: Pain Multivitamins/Minerals/Vitamin C (Tab-A-Fermin) 1 tab PO DAILY [facility] Last Admin: 11/17/17 08:05 Dose: 1 tab Omeprazole (Omeprazole) 20 mg PO ACBREAKFAST [facility] Last Admin: 11/17/17 07:08 Dose: 20 mg Ondansetron HCl (Zofran) 4 mg IV Q6HR PRN PRN Reason: NAUSEA/VOMITING Last Admin: 11/17/17 07:22 Dose: 4 mg Oxycodone HCl (Oxycontin) 20 mg PO ONARRIVE [facility] Last Admin: 11/16/17 07:29 Dose: 20 mg Oxycodone/Acetaminophen (Percocet 325-5 Mg) 1 - 2 tab PO Q4H PRN PRN Reason: Pain Last Admin: 11/17/17 14:39 Dose: 2 tab Promethazine HCl (Phenergan) 25 mg IM Q6H PRN PRN Reason: Nausea Last Admin: 11/17/17 08:28 Dose: 25 mg Ropinirole HCl (Requip) 0.5 mg PO BEDTIME [facility] Last Admin: 11/16/17 21:43 Dose: 0.5 mg Scopolamine (Transderm-Scop) 1.5 mg TRDERM ONARRIVE [facility] Last Admin: 11/16/17 07:28 Dose: 1.5 mg Simvastatin (Zocor) 5 mg PO DAILY [facility] Last Admin: 11/17/17 08:06 Dose: 5 mg Sodium Chloride (Saline Flush) 10 ml FLUSH ASDIRECTED PRN PRN Reason: Keep Vein Open Sodium Chloride (Saline Flush) 2.5 ml FLUSH ASDIRECTED PRN PRN Reason: Keep Vein Open Discontinued Medications Ephedrine Sulfate (Ephedrine Sulfate) Confirm Administered Dose 50 mg .ROUTE .STK-MED ONE Stop: 11/16/17 07:40 Fentanyl (Sublimaze) Confirm Administered Dose 100 mcg .ROUTE .STK-MED ONE Stop: 11/16/17 07:40 Fentanyl (Sublimaze) 50 mcg IVPUSH Q5M PRN PRN Reason: Pain (severe 7-10) Stop: 11/17/17 08:42 Fentanyl (Sublimaze) Confirm Administered Dose 100 mcg .ROUTE .STK-MED ONE Stop: 11/16/17 08:55 Fentanyl (Sublimaze) 50 mcg IVPUSH Q5M PRN PRN Reason: Pain (severe 7-10) Stop: 11/17/17 09:36 Ferrous Sulfate (Ferrous Sulfate) 32,358 mg PO DAILY [facility] Last Admin: 11/16/17 14:30 Dose: Not Given Hydromorphone HCl (Dilaudid) 0 mg IVPUSH ONETIME ONE Stop: 11/16/17 09:37 Last Admin: 11/16/17 14:29 Dose: Not Given Ropivacaine 49.25 ml/Ketorolac Tromethamine 30 mg/Epinephrine HCl 0.5 mg/ Clonidine HCl 80 mcg/ Sodium Chloride 100 mls @ 50 mls/sec INJECT ASDIRECTED [facility] Lactated Ringer's (Ringers, Lactated) 1,000 mls @ 100 mls/hr IV ASDIRECTED [facility] Last Admin: 11/16/17 22:16 Dose: 100 mls/hr Acetaminophen 1,000 mg/ Premix 100 mls @ 400 mls/hr IV Q6H [facility] Stop: 11/17/17 02:14 Last Admin: 11/17/17 01:23 Dose: 400 mls/hr Cefazolin Sodium/Dextrose 2 gm (/ Premix) 50 mls @ 100 mls/hr IV Q8H [facility] Stop: 11/17/17 01:29 Last Infusion: 11/17/17 01:15 Dose: Infused Ketorolac Tromethamine (Toradol) 30 mg IVPUSH ONARRIVE [facility] Last Admin: 11/16/17 07:29 Dose: 30 mg Lidocaine (Xylocaine-Mpf 2%) Confirm Administered Dose 10 ml .ROUTE .STK-MED ONE Stop: 11/16/17 07:39 Midazolam HCl (Versed 1 Mg/Ml) Confirm Administered Dose 2 mg .ROUTE .STK-MED ONE Stop: 11/16/17 07:40 Morphine Sulfate (Morphine Heel Padder 30 Mg In 30 Ml) 30 mg IV ASDIRECTED [facility] PRN Reason: Protocol Stop: 11/17/17 08:00 Last Admin: 11/16/17 11:22 Dose: 30 mg Oxycodone HCl (Oxycodone) 5 - 10 mg PO Q4H PRN PRN Reason: Pain Stop: 11/17/17 08:00 Last Admin: 11/17/17 05:22 Dose: 5 mg Oxycodone HCl (Oxycontin) 20 mg PO Q12HR [facility] Last Admin: 11/16/17 20:49 Dose: 20 mg Oxycodone/Acetaminophen (Percocet 325-5 Mg) Confirm Administered Dose 2 tab .ROUTE .STK-MED ONE Stop: 11/16/17 18:59 Last Admin: 11/16/17 19:03 Dose: Not Given Propofol (Diprivan 20 Ml) Confirm Administered Dose 400 mg .ROUTE .[facility]-MED ONE Stop: 11/16/17 07:39 Propofol (Diprivan 20 Ml) Confirm Administered Dose 200 mg .ROUTE .[facility]-MED ONE Stop: 11/16/17 09:13 Ropinirole HCl (Requip) 0.5 mg PO BEDTIME [facility] Tranexamic Acid (Cyklokapron) Confirm Administered Dose 4,000 mg .ROUTE .[facility]- MED ONE Stop: 11/16/17 07:23 - My Orders Last 24 Hours: Active Orders 24 hr Category Date Time Status HEMOGLOBIN/HEMATOCRIT,HH [HEME] DAILY Lab 11/18/17 06:00 Ordered HEMOGLOBIN/HEMATOCRIT,HH [HEME] DAILY Lab 11/19/17 06:00 Ordered Acetaminophen/oxyCODONE [Percocet 325-5 MG] Med 11/17/17 08:00 Active 1 - 2 tab PO Q4H PRN Apixaban [Eliquis] Med 11/17/17 09:00 Active 2.5 mg PO DAILY Ferrous Sulfate Med 11/17/17 09:00 Active 325 mg PO DAILY Morphine Med 11/17/17 08:00 Active 1 - 3 mg IVPUSH Q3H PRN Omeprazole Med 11/17/17 07:30 Active 20 mg PO ACBREAKFAST Promethazine [Phenergan] Med 11/17/17 07:59 Active 25 mg IM Q6H PRN Sodium Chloride 0.9% [Saline Flush] Med 11/17/17 08:09 Active 10 ml FLUSH ASDIRECTED PRN Sodium Chloride 0.9% [Saline Flush] Med 11/17/17 08:09 Active 2.5 ml FLUSH ASDIRECTED PRN rOPINIRole [Requip] Med 11/16/17 21:00 Active 0.5 mg PO BEDTIME Convert IV to Saline Lock [OM.PC] Routine Oth 11/17/17 08:09 Ordered Medication Orders Al Hydroxide/Mg Hydroxide (Mag-Al Plus) 30 ml PO Q4H PRN PRN Reason: indigestion Alprazolam (Xanax) 0.25 mg PO DAILY [facility] Last Admin: 11/17/17 08:06 Dose: 0.25 mg Admin: 11/16/17 14:29 Dose: Not Given Apixaban (Eliquis) 2.5 mg PO DAILY [facility] Last Admin: 11/17/17 08:05 Dose: 2.5 mg Bisacodyl (Dulcolax) 10 mg RECTAL DAILY PRN PRN Reason: Constipation Calcium Carbonate (Caltrate 600+D 1500 Mg-400 Units) 1 tab PO DAILY [facility] Last Admin: 11/17/17 08:05 Dose: 1 tab Admin: 11/16/17 14:28 Dose: Not Given Cetirizine HCl (Zyrtec) 10 mg PO DAILY [facility] Last Admin: 11/17/17 08:05 Dose: 10 mg Admin: 11/16/17 14:29 Dose: Not Given Diphenhydramine HCl (Benadryl) 25 - 50 mg PO Q6H PRN PRN Reason: Itching Docusate Sodium (Colace) 100 mg PO BID [facility] Last Admin: 11/17/17 08:05 Dose: 100 mg Admin: 11/16/17 20:49 Dose: 100 mg Admin: 11/16/17 14:28 Dose: Not Given Escitalopram Oxalate (Lexapro) 5 mg PO DAILY [facility] Last Admin: 11/17/17 08:05 Dose: 5 mg Admin: 11/16/17 14:29 Dose: Not Given Famotidine (Pepcid) 40 mg IVPUSH ONARRIVE [facility] Last Admin: 11/16/17 07:29 Dose: 40 mg Ferrous Sulfate (Ferrous Sulfate) 325 mg PO DAILY [facility] Last Admin: 11/17/17 08:05 Dose: 325 mg Fish Oil (Fish Oil) 1 gm PO DAILY [facility] Last Admin: 11/17/17 08:04 Dose: 1 gm Admin: 11/16/17 14:28 Dose: Not Given Acetaminophen 1,000 mg/ Premix 100 mls @ 400 mls/hr IV ONARRIVE [facility] Last Admin: 11/16/17 07:28 Dose: 400 mls/hr Cefazolin Sodium/Dextrose 2 gm (/ Premix) 50 mls @ 100 mls/hr IV ONCALL [facility] Last Admin: 11/16/17 16:44 Dose: 100 mls/hr Tranexamic Acid 4,000 mg/ (Sodium Chloride) 140 mls @ 600 mls/hr IV ASDIRECTED [facility] Ropivacaine 49.25 ml/Epinephrine HCl 0.5 mg/Clonidine HCl 80 mcg/ Sodium Chloride 99 mls @ 50 mls/min INJECT ASDIRECTED [facility] Magnesium Oxide (Magnesium Oxide) 400 mg PO BID [facility] Last Admin: 11/17/17 08:05 Dose: 400 mg Admin: 11/16/17 20:49 Dose: 400 mg Admin: 11/16/17 14:29 Dose: Not Given Morphine Sulfate (Morphine) 1 - 3 mg IVPUSH Q3H PRN PRN Reason: Pain Multivitamins/Minerals/Vitamin C (Tab-A-Fermin) 1 tab PO DAILY [facility] Last Admin: 11/17/17 08:05 Dose: 1 tab Admin: 11/16/17 14:29 Dose: Not Given Omeprazole (Omeprazole) 20 mg PO ACBREAKFAST [facility] Last Admin: 11/17/17 07:08 Dose: 20 mg Ondansetron HCl (Zofran) 4 mg IV Q6HR PRN PRN Reason: NAUSEA/VOMITING Last Admin: 11/17/17 07:22 Dose: 4 mg Admin: 11/17/17 01:20 Dose: 4 mg Admin: 11/16/17 16:40 Dose: 4 mg Oxycodone HCl (Oxycontin) 20 mg PO ONARRIVE [facility] Last Admin: 11/16/17 07:29 Dose: 20 mg Oxycodone/Acetaminophen (Percocet 325-5 Mg) 1 - 2 tab PO Q4H PRN PRN Reason: Pain Last Admin: 11/17/17 14:39 Dose: 2 tab Admin: 11/17/17 08:06 Dose: 2 tab Promethazine HCl (Phenergan) 25 mg IM Q6H PRN PRN Reason: Nausea Last Admin: 11/17/17 08:28 Dose: 25 mg Ropinirole HCl (Requip) 0.5 mg PO BEDTIME [facility] Last Admin: 11/16/17 21:43 Dose: 0.5 mg Scopolamine (Transderm-Scop) 1.5 mg TRDERM ONARRIVE [facility] Last Admin: 11/16/17 07:28 Dose: 1.5 mg Simvastatin (Zocor) 5 mg PO DAILY [facility] Last Admin: 11/17/17 08:06 Dose: 5 mg Admin: 11/16/17 14:29 Dose: Not Given Sodium Chloride (Saline Flush) 10 ml FLUSH ASDIRECTED PRN PRN Reason: Keep Vein Open Sodium Chloride (Saline Flush) 2.5 ml FLUSH ASDIRECTED PRN PRN Reason: Keep Vein Open - Plan Plan (Free Text/Narrative):: 1300 Patient seen and examined. Agree with above note. Patient states nausea better. Still with some pain requiring IV medication. Progressing with PT. Hgb stable. Dressing dry and intact. NVI. POD #1 1. continue to encourage PO meds for pain 2. increase activity as tolerated 3. plan for discharge home tomorrow rrk
[2017-11-17] MEDS: Magnesium Oxide 400 MG Tab PO SCH ×2 (08:05→20:16)
[2017-11-17] MEDS: Cetirizine 10 MG Tab PO SCH (08:05)
[2017-11-17] MEDS: Escitalopram 10 MG Tab PO SCH (08:05)
[2017-11-17] MEDS: Apixaban 2.5 MG Tab PO SCH (08:05)
[2017-11-17] MEDS: Calcium Carbonate/Vitamin D3 1500 MG-400 Units Tab PO SCH (08:05)
[2017-11-17] MEDS: Ferrous Sulfate 325 MG Tab PO SCH (08:05)
[2017-11-17] MEDS: Docusate Sodium 100 MG Cap PO SCH ×2 (08:05→20:16)
[2017-11-17] MEDS: Multivitamin Tab PO SCH (08:05)
[2017-11-17] MEDS: ALPRAZolam 0.25 MG Tab PO SCH (08:06)
[2017-11-17] MEDS: Simvastatin 10 MG Tab PO SCH (08:06)
[2017-11-17] MEDS: Acetaminophen/oxyCODONE 325-5 MG Tab PO PRN ×4 (08:06→23:17)
[2017-11-17] MEDS ORDERED: Sodium Chloride 0.9% 10 ML Syringe FLUSH PRN (08:09)
[2017-11-17] MEDS ORDERED: Sodium Chloride 0.9% 2.5 ML Syringe FLUSH PRN (08:09)
--- NOTE | 2017-11-17 13:02 | OR ---
SURGEON: Michelle Odonnell MD DATE OF PROCEDURE: 11/16/2017 PREOPERATIVE DIAGNOSIS: Degenerative joint disease, left knee, tricompartmental. POSTOPERATIVE DIAGNOSIS: Degenerative joint disease, left knee, tricompartmental. PROCEDURE: Left total knee arthroplasty using patient-specific instrumentation. CONTACT LENS MOLDER: Airam Enriquez PA-C. ANESTHESIA: Spinal with sedation. ESTIMATED BLOOD LOSS: 50 mL. TOURNIQUET TIME: 55 minutes. COMPLICATIONS: None. DVT PROPHYLAXIS: PAS boot and RICH hose to the nonoperative leg. IMPLANTS USED: Sandra Persona, femoral component, size 10, narrow (LPS), tibial component size F, 32 mm all-polyethylene patella, and 12 mm all-polyethylene insert. FINDINGS: Showed tricompartmental degenerative changes with osteophyte formation. Grade 4 chondromalacia was noted in all three compartments. No significant synovitis was found. She had previously undergone a left knee ACL reconstruction, and the prior graft site was visualized on the tibia. BRIEF HISTORY: Jade Cortes is a 62-year-old female, who has previously undergone a left ACL reconstruction. She subsequently had the hardware removed when it was noted that she had significant degenerative changes in her knee. She continued to complain of pain. At that time, I recommended surgical intervention. The risks and goals of the procedure were discussed with the patient and were documented preoperatively. She agreed to proceed. DESCRIPTION OF PROCEDURE: The patient was properly identified and brought to the operating room. The patient was then transferred from the operating room cart and placed on the operating table in a supine position. Anesthesia was administered by the anesthesia staff. After adequate anesthesia was obtained, a well-padded tourniquet was applied to the surgical lower extremity. Melendez catheter was placed. The lower extremity was then prepped in standard fashion using ChloraPrep solution. It was then sterilely draped. A time-out was performed to ensure correct site and procedure. Preoperative antibiotics were given along with one gram of tranexamic acid IV. The surgical site had been marked preoperatively. An Esmarch was used to exsanguinate the right lower extremity and the tourniquet was inflated. An incision was made over the anterior aspect of the knee. The subcutaneous tissues were dissected down to the level of the fascia. A medial parapatellar approach to the knee was made. A portion of the infrapatellar fat pad was then excised. The distal femur was then exposed. The femoral patient-specific cutting guide was then placed. Pins were also placed. The distal femoral cutting block was placed and the distal femoral cut was made. Instrumentation was then removed. Both Whitesides' line and the epicondylar axis were then marked with electrocautery. The 4-in-1 cutting block was placed. This was placed in a slightly externally rotated position, which corresponded well with the previously drawn lines. The cutting guide was then pinned into position. An Lance wing guide was used to check the depth of resection of our anterior condylar cut and it was felt that no notching would occur. The anterior condylar cut was then made followed by the posterior condylar cut. Both the posterior chamfer and anterior chamfer cuts were then made. The cutting block was then removed along with the excess bony remnants. We then turned our attention to the tibia. The anterior cruciate ligament and posterior cruciate ligament were released and a posterior cruciate ligament retractor was placed to allow the tibia to be pulled anteriorly. The tibial patient-specific guide was then placed on the proximal tibia. This fit anatomically. The pins were then placed. The proximal tibia cutting guide was then placed and screwed into position. The proximal tibial resection was then made with care being taken to protect the patellar tendon. The bony resection was then removed. The remainder of the medial and lateral meniscus were then excised. Care was taken to protect the popliteus tendon. The tibia was then sized to the appropriate size. The distal femur was then elevated. The posterior capsule was stripped off of the distal femur both medially and laterally. The posterior capsule along with the medial and lateral gutters were then injected with a standard mixture consisting of clonidine, epinephrine, Toradol, and Ropivacaine, unless any allergies were found preoperatively. The femoral component was then placed onto the distal femur in a slightly lateral position. This fit the femur well. A box cut was then made without difficulty. This was then removed. The tibial trial along with the polyethylene liner was then placed. The knee came easily into full extension and was stable to varus and valgus stressing both in full extension and flexion. Any additional releases were performed at this time. We then returned our attention to the patella. The patella was everted and towel clamps were used to hold the patella in position. It was resected to a 15 millimeter thickness. It was then sized to the appropriate size. It was prepared in the usual fashion after placing the predetermined size clamps. This was placed in a slightly superior and medial position. The clamp was then removed. The patellar trial button was placed. The knee was taken through a range of motion using the no-touch technique. The patella tracked centrally. A drop mello was then placed to check alignment. All instruments were then removed from the knee. The tibial sizer was then placed on the tibia. The tibia was prepared in the usual fashion using the reamer and broach. This was then removed. All bony surfaces were copiously irrigated with Pulsavac solution. They were then suctioned dry. Cement was prepared on the back table in the usual manner. Once it was prepared, the bone ends were again suctioned dry. The tibia was cemented into place first. This was malleted into position. Excess cement was then cleared. The femur was then placed in a similar manner. We placed the polyethylene trial into place and the knee was brought into full extension. An axial load was placed while keeping the knee in full extension. The patella button was also cemented into position and the clamp was used to hold this in place as the cement was allowed to cure. The wound was again copiously irrigated with saline solution using a Pulsavac developer support engineer. Following this 1 g of tranexamic acid was applied to the wound topically. After we had adequate curing of the cement, the knee was again taken through a range of motion. The size of the polyethylene was then determined. The polyethylene trial was then removed. The tibial tray was suctioned to make sure there was no remaining soft tissue or cement. Excess cement was cleared from around the edges of the prosthesis as well. The tourniquet was then deflated. We were able to observe for any excess bleeding and none was noted. Electrocautery was used to maintain hemostasis. An additional gram of tranexamic acid was given IV. The retractors were again placed and the predetermined polyethylene was then placed. This was locked into position without difficulty. The knee was again taken through a range of motion with no change from the prior exam. The fascial layer was closed with Number One Vicryl. The subcutaneous tissues were closed with 2-0 Vicryl. The skin was closed with kati. Xeroform gauze was placed over the wound and a bulky dressing was applied. The patient was then awakened from anesthesia and transferred back to the operating room cart. They were brought to the recovery room in stable condition. All needle and sponge counts were correct. LASHAE GRISSOM /[id number]
--- NOTE | 2017-11-17 16:23 | PCM48HPAN ---
Post Anesthesia Note - EVALUATION WITHIN 48HRS OF ANESTHETIC Vital Signs in Normal Range: Yes Patient Participated in Evaluation: Yes Respiratory Function Stable: Yes Airway Patent: Yes Cardiovascular Function Stable: Yes Hydration Status Stable: Yes (still with nausea ) Pain Control Satisfactory: Yes (percocet) Nausea and Vomiting Control Satisfactory: No Mental Status Recovered: Yes Resp Rate: 20
[2017-11-17] MEDS: rOPINIRole 1 MG Tab PO SCH (20:16)
[2017-11-18] MEDS: Acetaminophen/oxyCODONE 325-5 MG Tab PO PRN ×2 (03:15→07:08)
[2017-11-18] MEDS: Omeprazole 20 MG Cap.CR PO SCH (06:36)
[2017-11-18 07:52] VITALS: BP 120/69
[2017-11-18] MEDS: Ferrous Sulfate 325 MG Tab PO SCH (08:00)
[2017-11-18] MEDS: Fish Oil/Omega-3 Fatty Acids 1 Gm Cap PO SCH (08:00)
[2017-11-18] MEDS: Simvastatin 10 MG Tab PO SCH (08:00)
[2017-11-18] MEDS: Magnesium Oxide 400 MG Tab PO SCH (08:00)
[2017-11-18] MEDS: Cetirizine 10 MG Tab PO SCH (08:00)
[2017-11-18] MEDS: Multivitamin Tab PO SCH (08:00)
[2017-11-18] MEDS: Apixaban 2.5 MG Tab PO SCH (08:00)
[2017-11-18] MEDS: ALPRAZolam 0.25 MG Tab PO SCH (08:00)
[2017-11-18] MEDS: Escitalopram 10 MG Tab PO SCH (08:01)
[2017-11-18] MEDS: Calcium Carbonate/Vitamin D3 1500 MG-400 Units Tab PO SCH (08:01)
[2017-11-18] MEDS: Docusate Sodium 100 MG Cap PO SCH (08:01)
--- NOTE | 2017-11-18 08:08 | PCM.SURGPN ---
- General Info Date of Service: 11/18/17 Date of Surgery/Procedure: 11/16/17 POD#: 2 Functional Status: Reports: Pain Controlled, Tolerating Diet, Ambulating - Review of Systems General: Reports: No Symptoms Gastrointestinal: Denies: Nausea Musculoskeletal: Reports: Leg Pain Systems Review Comment:: pt resting comfortably in bed no nausea today pain controlled with Percocet 5/325 did stairs yesterday with PT would like to go home today - Patient Data Vitals - Most Recent: Last Vital Signs Temp 98.4 F 11/18/17 07:51 Pulse 95 11/18/17 07:51 Resp 18 11/18/17 07:51 BP 120/69 11/18/17 07:51 Pulse Ox 92 L 11/18/17 07:51 Weight - Most Recent: 80.73 kg I&O - Last 24 Hours: Intake & Output 11/17/17 11/18/17 11/18/17 22:59 06:59 14:59 Intake Total 700 650 Output Total 1325 1500 Balance -625 -850 Lab Results Last 24 Hrs: Laboratory Results - last 24 hr 11/18/17 Range/Units 05:40 Hgb 12.7 (12.0-16.0) g/dL Hct 38.3 (36.0-46.0) % Med Orders - Current: Current Medications Al Hydroxide/Mg Hydroxide (Mag-Al Plus) 30 ml PO Q4H PRN PRN Reason: indigestion Alprazolam (Xanax) 0.25 mg PO DAILY [facility] Last Admin: 11/18/17 08:00 Dose: 0.25 mg Apixaban (Eliquis) 2.5 mg PO DAILY [facility] Last Admin: 11/18/17 08:00 Dose: 2.5 mg Bisacodyl (Dulcolax) 10 mg RECTAL DAILY PRN PRN Reason: Constipation Calcium Carbonate (Caltrate 600+D 1500 Mg-400 Units) 1 tab PO DAILY [facility] Last Admin: 11/18/17 08:01 Dose: 1 tab Cetirizine HCl (Zyrtec) 10 mg PO DAILY [facility] Last Admin: 11/18/17 08:00 Dose: 10 mg Diphenhydramine HCl (Benadryl) 25 - 50 mg PO Q6H PRN PRN Reason: Itching Docusate Sodium (Colace) 100 mg PO BID [facility] Last Admin: 11/18/17 08:01 Dose: 100 mg Escitalopram Oxalate (Lexapro) 5 mg PO DAILY [facility] Last Admin: 11/18/17 08:01 Dose: 5 mg Famotidine (Pepcid) 40 mg IVPUSH ONARRIVE [facility] Last Admin: 11/16/17 07:29 Dose: 40 mg Ferrous Sulfate (Ferrous Sulfate) 325 mg PO DAILY [facility] Last Admin: 11/18/17 08:00 Dose: 325 mg Fish Oil (Fish Oil) 1 gm PO DAILY [facility] Last Admin: 11/18/17 08:00 Dose: 1 gm Acetaminophen 1,000 mg/ Premix 100 mls @ 400 mls/hr IV ONARRIVE [facility] Last Admin: 11/16/17 07:28 Dose: 400 mls/hr Cefazolin Sodium/Dextrose 2 gm (/ Premix) 50 mls @ 100 mls/hr IV ONCALL [facility] Last Admin: 11/16/17 16:44 Dose: 100 mls/hr Tranexamic Acid 4,000 mg/ (Sodium Chloride) 140 mls @ 600 mls/hr IV ASDIRECTED [facility] Ropivacaine 49.25 ml/Epinephrine HCl 0.5 mg/Clonidine HCl 80 mcg/ Sodium Chloride 99 mls @ 50 mls/min INJECT ASDIRECTED [facility] Magnesium Oxide (Magnesium Oxide) 400 mg PO BID [facility] Last Admin: 11/18/17 08:00 Dose: 400 mg Morphine Sulfate (Morphine) 1 - 3 mg IVPUSH Q3H PRN PRN Reason: Pain Multivitamins/Minerals/Vitamin C (Tab-A-Fermin) 1 tab PO DAILY [facility] Last Admin: 11/18/17 08:00 Dose: 1 tab Omeprazole (Omeprazole) 20 mg PO ACBREAKFAST [facility] Last Admin: 11/18/17 06:36 Dose: 20 mg Ondansetron HCl (Zofran) 4 mg IV Q6HR PRN PRN Reason: NAUSEA/VOMITING Last Admin: 11/17/17 07:22 Dose: 4 mg Oxycodone HCl (Oxycontin) 20 mg PO ONARRIVE [facility] Last Admin: 11/16/17 07:29 Dose: 20 mg Oxycodone/Acetaminophen (Percocet 325-5 Mg) 1 - 2 tab PO Q4H PRN PRN Reason: Pain Last Admin: 03/07/18 07:08 Dose: 2 tab Promethazine HCl (Phenergan) 25 mg IM Q6H PRN PRN Reason: Nausea Last Admin: 11/17/17 08:28 Dose: 25 mg Ropinirole HCl (Requip) 0.5 mg PO BEDTIME [facility] Last Admin: 11/17/17 20:16 Dose: 0.5 mg Scopolamine (Transderm-Scop) 1.5 mg TRDERM ONARRIVE [facility] Last Admin: 11/16/17 07:28 Dose: 1.5 mg Simvastatin (Zocor) 5 mg PO DAILY [facility] Last Admin: 11/18/17 08:00 Dose: 5 mg Sodium Chloride (Saline Flush) 10 ml FLUSH ASDIRECTED PRN PRN Reason: Keep Vein Open Sodium Chloride (Saline Flush) 2.5 ml FLUSH ASDIRECTED PRN PRN Reason: Keep Vein Open Discontinued Medications Ephedrine Sulfate (Ephedrine Sulfate) Confirm Administered Dose 50 mg .ROUTE .STK-MED ONE Stop: 11/16/17 07:40 Fentanyl (Sublimaze) Confirm Administered Dose 100 mcg .ROUTE .STK-MED ONE Stop: 11/16/17 07:40 Fentanyl (Sublimaze) 50 mcg IVPUSH Q5M PRN PRN Reason: Pain (severe 7-10) Stop: 11/17/17 08:42 Fentanyl (Sublimaze) Confirm Administered Dose 100 mcg .ROUTE .STK-MED ONE Stop: 11/16/17 08:55 Fentanyl (Sublimaze) 50 mcg IVPUSH Q5M PRN PRN Reason: Pain (severe 7-10) Stop: 11/17/17 09:36 Ferrous Sulfate (Ferrous Sulfate) 32,358 mg PO DAILY [facility] Last Admin: 11/16/17 14:30 Dose: Not Given Hydromorphone HCl (Dilaudid) 0 mg IVPUSH ONETIME ONE Stop: 11/16/17 09:37 Last Admin: 11/16/17 14:29 Dose: Not Given Ropivacaine 49.25 ml/Ketorolac Tromethamine 30 mg/Epinephrine HCl 0.5 mg/ Clonidine HCl 80 mcg/ Sodium Chloride 100 mls @ 50 mls/sec INJECT ASDIRECTED [facility] Lactated Ringer's (Ringers, Lactated) 1,000 mls @ 100 mls/hr IV ASDIRECTED [facility] Last Admin: 11/16/17 22:16 Dose: 100 mls/hr Acetaminophen 1,000 mg/ Premix 100 mls @ 400 mls/hr IV Q6H [facility] Stop: 11/17/17 02:14 Last Admin: 11/17/17 01:23 Dose: 400 mls/hr Cefazolin Sodium/Dextrose 2 gm (/ Premix) 50 mls @ 100 mls/hr IV Q8H [facility] Stop: 11/17/17 01:29 Last Infusion: 11/17/17 01:15 Dose: Infused Ketorolac Tromethamine (Toradol) 30 mg IVPUSH ONARRIVE [facility] Last Admin: 11/16/17 07:29 Dose: 30 mg Lidocaine (Xylocaine-Mpf 2%) Confirm Administered Dose 10 ml .ROUTE .STK-MED ONE Stop: 11/16/17 07:39 Midazolam HCl (Versed 1 Mg/Ml) Confirm Administered Dose 2 mg .ROUTE .STK-MED ONE Stop: 11/16/17 07:40 Morphine Sulfate (Morphine Inspector Handbag Frames 30 Mg In 30 Ml) 30 mg IV ASDIRECTED [facility] PRN Reason: Protocol Stop: 11/17/17 08:00 Last Admin: 11/16/17 11:22 Dose: 30 mg Oxycodone HCl (Oxycodone) 5 - 10 mg PO Q4H PRN PRN Reason: Pain Stop: 11/17/17 08:00 Last Admin: 11/17/17 05:22 Dose: 5 mg Oxycodone HCl (Oxycontin) 20 mg PO Q12HR [facility] Last Admin: 11/16/17 20:49 Dose: 20 mg Oxycodone/Acetaminophen (Percocet 325-5 Mg) Confirm Administered Dose 2 tab .ROUTE .STK-MED ONE Stop: 11/16/17 18:59 Last Admin: 11/16/17 19:03 Dose: Not Given Propofol (Diprivan 20 Ml) Confirm Administered Dose 400 mg .ROUTE .STK-MED ONE Stop: 11/16/17 07:39 Propofol (Diprivan 20 Ml) Confirm Administered Dose 200 mg .ROUTE .STK-MED ONE Stop: 11/16/17 09:13 Ropinirole HCl (Requip) 0.5 mg PO BEDTIME [facility] Tranexamic Acid (Cyklokapron) Confirm Administered Dose 4,000 mg .ROUTE .STK- MED ONE Stop: 11/16/17 07:23 - Exam Wound/Incisions: Healing Well. No: Drainage, Erythema General: Alert, Oriented Cardiovascular: Regular Rate, Regular Rhythm Extremities: Other (Exam LLE - incision clean/dry/no drainage/no erythema. at/ ehl/gastroc 5/5, dp 2+, sensation intact distally) Physical Findings Comment:: vss, afeb hgb 12.7 - Problem List Review Problem List Initiated/Reviewed/Updated: Yes - My Orders Last 24 Hours: Active Orders 24 hr Category Date Time Status HEMOGLOBIN/HEMATOCRIT,HH [HEME] DAILY Lab 11/19/17 06:00 Ordered Acetaminophen/oxyCODONE [Percocet 325-5 MG] Med 11/17/17 08:00 Active 1 - 2 tab PO Q4H PRN Apixaban [Eliquis] Med 11/17/17 09:00 Active 2.5 mg PO DAILY Ferrous Sulfate Med 11/17/17 09:00 Active 325 mg PO DAILY Morphine Med 11/17/17 08:00 Active 1 - 3 mg IVPUSH Q3H PRN Omeprazole Med 11/17/17 07:30 Active 20 mg PO ACBREAKFAST Promethazine [Phenergan] Med 11/17/17 07:59 Active 25 mg IM Q6H PRN Sodium Chloride 0.9% [Saline Flush] Med 11/17/17 08:09 Active 10 ml FLUSH ASDIRECTED PRN Sodium Chloride 0.9% [Saline Flush] Med 11/17/17 08:09 Active 2.5 ml FLUSH ASDIRECTED PRN Convert IV to Saline Lock [OM.PC] Routine Oth 11/17/17 08:09 Ordered Medication Orders Al Hydroxide/Mg Hydroxide (Mag-Al Plus) 30 ml PO Q4H PRN PRN Reason: indigestion Alprazolam (Xanax) 0.25 mg PO DAILY [facility] Last Admin: 11/18/17 08:00 Dose: 0.25 mg Admin: 11/17/17 08:06 Dose: 0.25 mg Admin: 11/16/17 14:29 Dose: Not Given Apixaban (Eliquis) 2.5 mg PO DAILY [facility] Last Admin: 11/18/17 08:00 Dose: 2.5 mg Admin: 11/17/17 08:05 Dose: 2.5 mg Bisacodyl (Dulcolax) 10 mg RECTAL DAILY PRN PRN Reason: Constipation Calcium Carbonate (Caltrate 600+D 1500 Mg-400 Units) 1 tab PO DAILY [facility] Last Admin: 11/18/17 08:01 Dose: 1 tab Admin: 11/17/17 08:05 Dose: 1 tab Admin: 11/16/17 14:28 Dose: Not Given Cetirizine HCl (Zyrtec) 10 mg PO DAILY [facility] Last Admin: 11/18/17 08:00 Dose: 10 mg Admin: 11/17/17 08:05 Dose: 10 mg Admin: 11/16/17 14:29 Dose: Not Given Diphenhydramine HCl (Benadryl) 25 - 50 mg PO Q6H PRN PRN Reason: Itching Docusate Sodium (Colace) 100 mg PO BID [facility] Last Admin: 11/18/17 08:01 Dose: 100 mg Admin: 11/17/17 20:16 Dose: 100 mg Admin: 11/17/17 08:05 Dose: 100 mg Admin: 11/16/17 20:49 Dose: 100 mg Admin: 11/16/17 14:28 Dose: Not Given Escitalopram Oxalate (Lexapro) 5 mg PO DAILY [facility] Last Admin: 11/18/17 08:01 Dose: 5 mg Admin: 11/17/17 08:05 Dose: 5 mg Admin: 11/16/17 14:29 Dose: Not Given Famotidine (Pepcid) 40 mg IVPUSH ONARRIVE [facility] Last Admin: 11/16/17 07:29 Dose: 40 mg Ferrous Sulfate (Ferrous Sulfate) 325 mg PO DAILY [facility] Last Admin: 11/18/17 08:00 Dose: 325 mg Admin: 11/17/17 08:05 Dose: 325 mg Fish Oil (Fish Oil) 1 gm PO DAILY [facility] Last Admin: 11/18/17 08:00 Dose: 1 gm Admin: 11/17/17 08:04 Dose: 1 gm Admin: 11/16/17 14:28 Dose: Not Given Acetaminophen 1,000 mg/ Premix 100 mls @ 400 mls/hr IV ONARRIVE [facility] Last Admin: 11/16/17 07:28 Dose: 400 mls/hr Cefazolin Sodium/Dextrose 2 gm (/ Premix) 50 mls @ 100 mls/hr IV ONCALL [facility] Last Admin: 11/16/17 16:44 Dose: 100 mls/hr Tranexamic Acid 4,000 mg/ (Sodium Chloride) 140 mls @ 600 mls/hr IV ASDIRECTED [facility] Ropivacaine 49.25 ml/Epinephrine HCl 0.5 mg/Clonidine HCl 80 mcg/ Sodium Chloride 99 mls @ 50 mls/min INJECT ASDIRECTED [facility] Magnesium Oxide (Magnesium Oxide) 400 mg PO BID [facility] Last Admin: 11/18/17 08:00 Dose: 400 mg Admin: 11/17/17 20:16 Dose: 400 mg Admin: 11/17/17 08:05 Dose: 400 mg Admin: 11/16/17 20:49 Dose: 400 mg Admin: 11/16/17 14:29 Dose: Not Given Morphine Sulfate (Morphine) 1 - 3 mg IVPUSH Q3H PRN PRN Reason: Pain Multivitamins/Minerals/Vitamin C (Tab-A-Fermin) 1 tab PO DAILY [facility] Last Admin: 11/18/17 08:00 Dose: 1 tab Admin: 11/17/17 08:05 Dose: 1 tab Admin: 11/16/17 14:29 Dose: Not Given Omeprazole (Omeprazole) 20 mg PO ACBREAKFAST [facility] Last Admin: 11/18/17 06:36 Dose: 20 mg Admin: 11/17/17 07:08 Dose: 20 mg Ondansetron HCl (Zofran) 4 mg IV Q6HR PRN PRN Reason: NAUSEA/VOMITING Last Admin: 11/17/17 07:22 Dose: 4 mg Admin: 11/17/17 01:20 Dose: 4 mg Admin: 11/16/17 16:40 Dose: 4 mg Oxycodone HCl (Oxycontin) 20 mg PO ONARRIVE [facility] Last Admin: 11/16/17 07:29 Dose: 20 mg Oxycodone/Acetaminophen (Percocet 325-5 Mg) 1 - 2 tab PO Q4H PRN PRN Reason: Pain Last Admin: 11/18/17 07:08 Dose: 2 tab Admin: 11/18/17 03:15 Dose: 2 tab Admin: 11/17/17 23:17 Dose: 2 tab Admin: 11/17/17 19:24 Dose: 2 tab Admin: 11/17/17 14:39 Dose: 2 tab Admin: 11/17/17 08:06 Dose: 2 tab Promethazine HCl (Phenergan) 25 mg IM Q6H PRN PRN Reason: Nausea Last Admin: 11/17/17 08:28 Dose: 25 mg Ropinirole HCl (Requip) 0.5 mg PO BEDTIME [facility] Last Admin: 11/17/17 20:16 Dose: 0.5 mg Admin: 11/16/17 21:43 Dose: 0.5 mg Scopolamine (Transderm-Scop) 1.5 mg TRDERM ONARRIVE [facility] Last Admin: 11/16/17 07:28 Dose: 1.5 mg Simvastatin (Zocor) 5 mg PO DAILY [facility] Last Admin: 11/18/17 08:00 Dose: 5 mg Admin: 11/17/17 08:06 Dose: 5 mg Admin: 11/16/17 14:29 Dose: Not Given Sodium Chloride (Saline Flush) 10 ml FLUSH ASDIRECTED PRN PRN Reason: Keep Vein Open Sodium Chloride (Saline Flush) 2.5 ml FLUSH ASDIRECTED PRN PRN Reason: Keep Vein Open - Assessment Assessment (Free Text/Narrative):: POD#2 L TKA - Plan Plan (Free Text/Narrative):: continue PT, pain management dressing changed to Aquacel d/ch to home today d/ch summary #[id number]
--- NOTE | 2017-11-18 12:45 | DISCH ---
DATE OF DISCHARGE: 11/18/2017 PRIMARY CARE PHYSICIAN: Colby Velasquez ADMITTING DIAGNOSIS: Degenerative joint disease, left knee, tricompartmental. OTHER MEDICAL DIAGNOSES: 1. Anxiety. 2. Dyslipidemia. 3. Gastroesophageal reflux disease. 4. Migraine. 5. Sleep apnea. DISCHARGE DIAGNOSES: 1. Degenerative joint disease, left knee, tricompartmental. 2. Anxiety. 3. Dyslipidemia. 4. Gastroesophageal reflux disease. 5. Migraine. 6. Sleep apnea. BRIEF HISTORY: Jade is a 62-year-old female who has had progressive complaints of left knee pain. She is status post left ACL reconstruction. She had tried and failed conservative treatment. At that time, surgical treatment was recommended. On November 16, 2017, the patient underwent a left total knee arthroplasty using patient-specific instrumentation done by Dr. Michelle Odonnell. This is under spinal anesthesia with sedation. Estimated blood loss was 50 mL. Tourniquet time was 55 minutes. There were no known complications. Upon completion of the procedure, the patient was sent to the PACU and subsequently to [facility] for postoperative care. HOSPITAL COURSE: Postoperatively, the patient did well. She received two doses of Ancef postoperatively for a total 24 hours of antibiotic coverage. Her pain was controlled with a combination of oral and IV pain medications. The OxyContin did cause her significant nausea. This resolved with stopping the OxyContin. Physical Therapy followed her through her hospital stay. Her vital signs have been stable. She has been afebrile. Her hemoglobin on the morning of November 18 was 12.7. She is tolerating oral intake. Her pain is well controlled with oral pain medications only. She is ambulating well with a wheeled walker. She feels comfortable with discharge to home. DISCHARGE MEDICATIONS: 1. Percocet 5/325. 2. Colace 100 mg. 3. Eliquis 2.5 mg. DISCHARGE INSTRUCTIONS: 1. Follow up in clinic 10 to 14 days from the date of procedure. This appointment has been made for the patient. 2. Outpatient physical therapy 2 to 3 times per week for 4 to 6 weeks. 3. No driving while taking narcotic pain medications. 4. RICH hose; on in the morning, off in the evening. 5. Polar Care to the left knee as needed. 6. She is to change her dressing on Wednesday, November 22, 2017. She should place a new Aquacel dressing and that in place until followup. Should she have questions or concerns prior to followup, she has been advised to return to clinic or call. For complete medication, reconciliation, and discharge instructions, please refer back to the patient's EHR. AMERICA GRISSOM /[id number] MTDD
== END 2017-11-18 11:28 | disposition home or self-care (01) | DRG 302 ==
LOC: MW.SDS 06:49 → MW.MS 12:28 → MW.SDS 14:00 → MW.MS 14:36
PROVIDERS: ADMIT Orthopaedic Surgery; ATTEND Orthopaedic Surgery
PROC: 0SRD0J9 Replacement of Left Knee Joint with Synthetic Substitute, Cemented, Open Approach (ICD-10-PCS; principal; 2017-11-16)
DX: M17.12 Unilateral primary osteoarthritis, left knee (principal); M25.762 Osteophyte, left knee; M94.262 Chondromalacia, left knee; F41.9 Anxiety disorder, unspecified; E78.5 Hyperlipidemia, unspecified; K21.9 Gastro-esophageal reflux disease without esophagitis; G43.909 Migraine, unspecified, not intractable, without status migrainosus; G47.30 Sleep apnea, unspecified; Z87.891 Personal history of nicotine dependence
CPT/HCPCS: 01402; 36415; 73560-26-LT; 73560-LT; 85014; 85018; 86850; 86900; 86901; 88305; 88311; 97110-GP; 97161-GP; 97530-GP; A9270-GY; C1713; C1776; J0171; J0690; J0735; J1885; J2250; J2274; J2405; J2550; J2704; J2795; J3010; J7050; J7120

== ENCOUNTER 2017-12-28 10:00 | Day surgery (SDC) | payer BC ==
[~2017-12-28 10:00] MED LIST changes: -Acetaminophen 1,000 MG in Premix Bag 1 BAG IV SCH; +Acetaminophen/oxyCODONE 325-5 MG Tab PO PRN; -Famotidine 20 MG/2 ML SDV IVPUSH SCH; -Ketorolac 30 MG/ML SDV IVPUSH SCH; -Scopolamine 1.5 MG Transdermal Patch TRDERM SCH; -oxyCODONE ER 20 MG TAB.ER PO SCH
[2017-12-28] MEDS ORDERED: Ondansetron 4 MG/2 ML SDV ONE (10:30)
[2017-12-28] MEDS ORDERED: Rocuronium 10 MG/ML 10 ML Syringe ONE (10:30)
[2017-12-28] MEDS ORDERED: Lidocaine 2% 5 ML SDV ONE (10:30)
[2017-12-28] MEDS ORDERED: Propofol 200 MG/20 ML SDV ONE (10:31)
[2017-12-28] MEDS ORDERED: fentaNYL 250 MCG/5 ML SDV ONE (10:31)
[2017-12-28] MEDS ORDERED: Midazolam 1 MG/ML 2 ML SDV ONE (10:31)
[2017-12-28] MEDS ORDERED: Succinylcholine 200 MG/10 ML MDV ONE (10:37)
--- NOTE | 2017-12-28 10:49 | PCM.PREANE ---
Preanesthetic Assessment - Anesthesia/Transfusion/Family Hx Anesthesia History: Prior Anesthesia Without Reaction Other Type of Anesthesia Reaction Comment: states has "problems with nausea after surgery" Family History of Anesthesia Reaction: No Transfusion History: No Prior Transfusion(s) Intubation History: Unknown - Review of Systems General: No Symptoms Pulmonary: No Symptoms Cardiovascular: No Symptoms Gastrointestinal: No Symptoms Neurological: No Symptoms Other: Reports: None - Physical Assessment NPO Status Date: 12/27/17 Height: 1.7 m Weight: 78.018 kg ASA Class: 2 Mental Status: Alert & Oriented x3 Airway Class: Mallampati = 2 Dentition: Reports: Normal Dentition ROM/Head Extension: Full Lungs: Clear to Auscultation, Normal Respiratory Effort Cardiovascular: Regular Rate, Regular Rhythm - Allergies Allergies/Adverse Reactions: Allergies Allergy/AdvReac Type Severity Reaction Status Date / Time aspirin Allergy Hives Verified 12/25/17 11:02 ibuprofen Allergy Hives Verified 12/25/17 11:02 - Anesthesia Plan Pre-Op Medication Ordered: None - Acknowledgements Anesthesia Type Planned: General Anesthesia Pt an Appropriate Candidate for the Planned Anesthesia: Yes Alternatives and Risks of Anesthesia Discussed w Pt/Guardian: Yes Pt/Guardian Understands and Agrees with Anesthesia Plan: Yes PreAnesthesia Questionnaire Other HEENT History: wears glasses Cardiovascular History: Reports: High Cholesterol Other Respiratory History: hx: Former smoker, QUIT '1988 Gastrointestinal History: Reports: GERD, PUD, Other (See Below) Other Gastrointestinal History: hx of Barretts Esophagus Musculoskeletal History: Reports: Arthritis, Fracture Other Musculoskeletal History: hx of fx arm Neurological History: Reports: Other (See Below) Other Neuro History: hx of motion sickness, restless legs Psychiatric History: Reports: Anxiety Endocrine/Metabolic History: Reports: None Hematologic History: Reports: None Immunologic History: Reports: None Oncologic (Cancer) History: Reports: None Dermatologic History: Reports: None - Infectious Disease History Infectious Disease History: Reports: Chicken Pox, Measles - Past Surgical History Head Surgeries/Procedures: Reports: None HEENT Surgical History: Reports: Adenoidectomy, Tonsillectomy Female Surgical History: Reports: Hysterectomy, Other (See Below) Other Female Surgeries/Procedures: Bladder Entercystoplasty Musculoskeletal Surgical History: Reports: Knee Replacement, Other (See Below) Other Musculoskeletal Surgeries/Procedures:: hx left knee surgery, hx hardware removal to left knee - SUBSTANCE USE Smoking Status *Q: Never Smoker Second Hand Smoke Exposure: No Days Per Week of Alcohol Use: 0 Recreational Drug Use History: No - HOME MEDS Home Medications: Home Meds ALPRAZolam [Alprazolam] 0.25 mg PO DAILY MDD 0.50 03/22/15 [History] Cetirizine HCl 10 mg PO DAILY 03/22/15 [History] Magnesium Oxide [Magnesium] 500 mg PO BID 03/22/15 [History] Multivitamin [Multi-Vitamin Daily] 1 tab.chew CHEW DAILY 03/22/15 [History] RABEprazole Sodium [Aciphex] 20 mg PO ACBREAKFAST 03/22/15 [History] Simvastatin 5 mg PO DAILY 03/22/15 [History] Escitalopram Oxalate 5 mg PO DAILY 07/10/17 [History] Ferrous Gluconate [Iron] 240 mg PO DAILY 07/10/17 [History] rOPINIRole HCl [Requip] 0.5 mg PO BEDTIME 07/10/17 [History] Ca Carbonate/Vitamin D3/Vit K [Calcium + D Soft Chewable Tab] 1 tab.chew CHEW DAILY 11/11/17 [History] Acetaminophen/oxyCODONE [Percocet 325-5 MG] 1 - 2 tab PO Q4H PRN #80 tablet 03/31 [Rx] Docusate Sodium [Colace] 100 mg PO BID #60 cap 11/18/17 [Rx] - CURRENT (IN HOUSE) MEDS Current Meds: Current Medications Oxycodone/Acetaminophen (Percocet 325-5 Mg) 1 - 2 tab PO Q4H PRN PRN Reason: Pain Discontinued Medications Fentanyl (Sublimaze) Confirm Administered Dose 250 mcg .ROUTE .STK-MED ONE Stop: 12/28/17 10:32 Lidocaine (Xylocaine-Mpf 2%) Confirm Administered Dose 5 ml .ROUTE .STK-MED ONE Stop: 12/28/17 10:31 Midazolam HCl (Versed 1 Mg/Ml) Confirm Administered Dose 2 mg .ROUTE .STK-MED ONE Stop: 12/28/17 10:32 Ondansetron HCl (Zofran) Confirm Administered Dose 4 mg .ROUTE .STK-MED ONE Stop: 12/28/17 10:31 Propofol (Diprivan 20 Ml) Confirm Administered Dose 200 mg .ROUTE .STK-MED ONE Stop: 12/28/17 10:32 Rocuronium [place] (Zemuron) Confirm Administered Dose 100 mg .ROUTE .STK-MED ONE Stop: 12/28/17 10:31 Succinylcholine Chloride (Quelicin) Confirm Administered Dose 200 mg .ROUTE .[facility] -MED ONE Stop: 12/28/17 10:38
--- NOTE | 2017-12-28 12:21 | PCM.OPNOTE ---
- General Post-Op/Procedure Note Date of Surgery/Procedure: 12/28/17 Operative Procedure(s): L TKA manipulation Post-Op Diagnosis: arthrofibrosis L TKA Anesthesia Technique: General Mask Primary Surgeon: Michelle Odonnell EBL in mLs: 0 Condition: Good Free Text/Narrative:: tt=0 min #[id number]
--- NOTE | 2017-12-28 12:29 | PCM.POSTAN ---
POST ANESTHESIA ASSESSMENT - MENTAL STATUS Mental Status: Alert, Oriented - RESPIRATORY Respiratory Status: Respiratory Rate WNL, Airway Patent, O2 Saturation Stable - CARDIOVASCULAR CV Status: Pulse Rate WNL, Blood Pressure Stable - GASTROINTESTINAL GI Status: No Symptoms - POST OP HYDRATION Hydration Status: Adequate & Stable
[2017-12-28] MEDS: fentaNYL 100 MCG/2 ML SDV IVPUSH PRN ×4 (12:34→12:50)
[2017-12-28] MEDS ORDERED: fentaNYL 100 MCG/2 ML SDV ONE (12:34)
--- NOTE | 2017-12-28 12:51 | OR ---
SURGEON: Michelle Odonnell MD DATE OF PROCEDURE: 12/28/2017 PREOPERATIVE DIAGNOSIS: Arthrofibrosis left knee, status post total knee arthroplasty. POSTOPERATIVE DIAGNOSIS: Arthrofibrosis left knee, status post total knee arthroplasty. PROCEDURE: Left total knee arthroplasty manipulation. ANESTHESIA: General. ESTIMATED BLOOD LOSS: 0 mL. TOURNIQUET TIME: 0 minutes. COMPLICATIONS: None. DEEP VENOUS THROMBOSIS PROPHYLAXIS: Not indicated. IMPLANTS USED: None. BRIEF HISTORY: Jade is a 62-year-old female who has previously undergone a left total knee arthroplasty. She had undergone open reduction and internal fixation of a left tibial plateau fracture in the past. She had developed arthrofibrosis in the knee. She is unable to tolerate anti-inflammatory medications due to her allergy. Due to her lack of response to conservative treatment, I did recommend surgical intervention. The risks and goals of procedure were discussed with the patient and were documented preoperatively. She agreed to proceed. DESCRIPTION OF PROCEDURE: The patient was properly identified and brought to the operating room. She was kept on the operating room cart. General anesthesia with paralytic was administered. After adequate anesthesia was obtained, a time-out was performed to ensure correct site and procedure. Preoperative antibiotics were not given. The surgical site had been marked preoperatively. Preoperative range of motion was evaluated. She was lacking 5 degrees of full extension and had approximately 85 degrees of flexion. She appeared to have a firm block to further motion. The hip was flexed to 90 degrees. Gentle downward flexion on the lower leg was applied. Adhesions were noted to be released with palpation of the knee. At completion, I was able to get her to approximately 120 degrees. Photographs documented pre and postoperative status. The patient tolerated the procedure well. She was awakened from her anesthetic and transferred to the recovery room in stable condition. LASHAE / PRAVEENA /[id number]
--- NOTE | 2017-12-28 13:19 | PCM48HPAN ---
Post Anesthesia Note - EVALUATION WITHIN 48HRS OF ANESTHETIC Vital Signs in Normal Range: Yes Patient Participated in Evaluation: Yes Respiratory Function Stable: Yes Airway Patent: Yes Cardiovascular Function Stable: Yes Hydration Status Stable: Yes Pain Control Satisfactory: Yes Nausea and Vomiting Control Satisfactory: Yes Mental Status Recovered: Yes Resp Rate: 13
[2017-12-28 14:09] VITALS: BP 146/84
== END 2017-12-28 12:39 | disposition home or self-care (01) ==
LOC: MW.SDS 10:00
PROVIDERS: ATTEND Orthopaedic Surgery
DX: M24.662 Ankylosis, left knee (principal); F41.9 Anxiety disorder, unspecified; E78.5 Hyperlipidemia, unspecified; K21.9 Gastro-esophageal reflux disease without esophagitis; E66.9 Obesity, unspecified; G25.81 Restless legs syndrome; G47.30 Sleep apnea, unspecified; Z68.26 Body mass index [BMI] 26.0-26.9, adult; Z96.652 Presence of left artificial knee joint; Z79.899 Other long term (current) drug therapy; Z88.6 Allergy status to analgesic agent; Z87.891 Personal history of nicotine dependence
CPT/HCPCS: 27570; A9270; J0330; J2250; J2405; J3010; J2704

== ENCOUNTER 2019-02-14 06:35 | Inpatient (IN) | payer BC ==
[~2019-02-14 06:35] MED LIST changes: +Acetaminophen 1,000 MG in Premix Bag 1 BAG IV SCH; -Acetaminophen/oxyCODONE 325-5 MG Tab PO PRN; +CLONIDINE INJECT SCH; +EPINEPHRINE INJECT SCH; +Famotidine 20 MG/2 ML SDV IVPUSH SCH; +ROPIVACAINE INJECT SCH; +Scopolamine 1.5 MG Transdermal Patch TRDERM SCH; +Tranexamic Acid 2,000 MG in Sodium Chloride 0.9% 100 ML IV ONE; +[UNRECOGNIZED DRUG - OTHER] INJECT SCH
[2019-02-14] MEDS ORDERED: Ondansetron 4 MG/2 ML SDV ONE (07:10)
[2019-02-14] MEDS ORDERED: Propofol 200 MG/20 ML SDV ONE (07:10)
[2019-02-14] MEDS: Lactated Ringers 1,000 ML IV SCH ×3 (07:10→22:25)
[2019-02-14] MEDS ORDERED: Midazolam 1 MG/ML 2 ML SDV ONE (07:10)
[2019-02-14] MEDS ORDERED: fentaNYL 100 MCG/2 ML SDV ONE (07:10)
--- NOTE | 2019-02-14 07:17 | PCM.PREANE ---
Preanesthetic Assessment - Anesthesia/Transfusion/Family Hx Anesthesia History: Prior Anesthesia Without Reaction Other Type of Anesthesia Reaction Comment: states has "problems with nausea after surgery" Family History of Anesthesia Reaction: No Transfusion History: No Prior Transfusion(s) Intubation History: Unknown - Review of Systems General: No Symptoms Pulmonary: No Symptoms Cardiovascular: No Symptoms Gastrointestinal: No Symptoms Neurological: No Symptoms Other: Reports: None - Physical Assessment Height: 5 ft 7 in Weight: 80.739 kg ASA Class: 2 Mental Status: Alert & Oriented x3 Airway Class: Mallampati = 2 Dentition: Reports: Normal Dentition Thyro-Mental Finger Breadths: 3 Mouth Opening Finger Breadths: 3 ROM/Head Extension: Full Lungs: Clear to Auscultation, Normal Respiratory Effort Cardiovascular: Regular Rate, Regular Rhythm - Allergies Allergies/Adverse Reactions: Allergies Allergy/AdvReac Type Severity Reaction Status Date / Time aspirin Allergy Hives Verified 02/10/19 13:20 ibuprofen Allergy Hives Verified 02/10/19 13:20 - Blood Blood Available: No - Anesthesia Plan Pre-Op Medication Ordered: None - Acknowledgements Anesthesia Type Planned: Spinal Pt an Appropriate Candidate for the Planned Anesthesia: Yes Alternatives and Risks of Anesthesia Discussed w Pt/Guardian: Yes Pt/Guardian Understands and Agrees with Anesthesia Plan: Yes PreAnesthesia Questionnaire HEENT History: Reports: Other (See Below) Other HEENT History: wears glasses Cardiovascular History: Reports: High Cholesterol, Hypertension Other Respiratory History: hx: Former smoker, QUIT '1988 Gastrointestinal History: Reports: Colon Polyp, GERD, PUD, Other (See Below) Other Gastrointestinal History: hx of Barretts Esophagus Musculoskeletal History: Reports: Arthritis, Fracture Other Musculoskeletal History: hx of fx arm Neurological History: Reports: Other (See Below) Other Neuro History: hx of motion sickness, restless legs Psychiatric History: Reports: Anxiety Endocrine/Metabolic History: Reports: None Hematologic History: Reports: None Immunologic History: Reports: None Oncologic (Cancer) History: Reports: None Dermatologic History: Reports: None - Infectious Disease History Infectious Disease History: Reports: Chicken Pox, Measles - Past Surgical History HEENT Surgical History: Reports: Tonsillectomy Female Surgical History: Reports: Hysterectomy Other Female Surgeries/Procedures: Bladder Enterocystoplasty (anterior and posterior prolapse repair) Musculoskeletal Surgical History: Reports: Knee Replacement (11/16/17), Other ( See Below) - SUBSTANCE USE Smoking Status *Q: Former Smoker Tobacco Use Within Last Twelve Months: No Recreational Drug Use History: No - HOME MEDS Home Medications: Home Meds ALPRAZolam [Alprazolam] 0.25 mg PO DAILY MDD 0.50 03/22/15 [History] Cetirizine HCl 10 mg PO DAILY 03/22/15 [History] Magnesium Oxide [Magnesium] 500 mg PO BID 03/22/15 [History] Multivitamin [Multi-Vitamin Daily] 1 tab.chew CHEW DAILY 03/22/15 [History] RABEprazole Sodium [Aciphex] 20 mg PO ACBREAKFAST 03/22/15 [History] Simvastatin 5 mg PO BEDTIME 03/22/15 [History] Escitalopram Oxalate 10 mg PO DAILY 07/10/17 [History] Ferrous Gluconate [Iron] 240 mg PO DAILY 07/10/17 [History] rOPINIRole HCl [Requip] 0.25 mg PO BEDTIME 07/10/17 [History] Calcium Carbonate/Vitamin D3 [Calcium 500-Vit D3 400 Chew Tb] 1 tab CHEW DAILY 02/10/19 [History] - CURRENT (IN HOUSE) MEDS Current Meds: Current Medications Famotidine (Pepcid) 40 mg IVPUSH ONARRIVE TAMMY Last Admin: 02/14/19 07:08 Dose: 40 mg Acetaminophen 1,000 mg/ Premix 100 mls @ 400 mls/hr IV ONARRIVE TAMMY Last Admin: 02/14/19 07:08 Dose: 400 mls/hr Cefazolin Sodium/Dextrose 2 gm (/ Premix) 50 mls @ 100 mls/hr IV ONCALL TAMMY Lactated Ringer's (Ringers, Lactated) 1,000 mls @ 100 mls/hr IV ASDIRECTED TAMMY Ropivacaine 49.25 ml/Epinephrine HCl 0.5 mg/Clonidine HCl 80 mcg/ Sodium Chloride 74 mls @ 50 mls/min INJECT ASDIRECTED TAMMY Scopolamine (Transderm-Scop) 1.5 mg TRDERM ONARRIVE TAMMY Last Admin: 02/14/19 07:12 Dose: 1.5 mg Discontinued Medications Fentanyl (Sublimaze) Confirm Administered Dose 100 mcg .ROUTE .STK-MED ONE Stop: 02/14/19 07:11 Tranexamic Acid 2,000 mg/ (Sodium Chloride) 120 mls @ 600 mls/hr IV ASDIRECTED ONE Stop: 02/10/19 15:25 Ropivacaine 49.25 ml/Epinephrine HCl 0.5 mg/Clonidine HCl 80 mcg/ Sodium Chloride 74 mls @ 50 mls/min INJECT ASDIRECTED TAMMY Midazolam HCl (Versed 1 Mg/Ml) Confirm Administered Dose 2 mg .ROUTE .STK-MED ONE Stop: 02/14/19 07:11 Ondansetron HCl (Zofran) Confirm Administered Dose 4 mg .ROUTE .STK-MED ONE Stop: 02/14/19 07:11 Propofol (Diprivan 20 Ml) Confirm Administered Dose 400 mg .ROUTE .STK-MED ONE Stop: 02/14/19 07:11
[2019-02-14] MEDS ORDERED: ePHEDrine 50 MG/ML SDV ONE (07:38)
[2019-02-14] MEDS ORDERED: Sodium Chloride 0.9% 20 ML ONE ×2 (07:39→08:44)
[2019-02-14] MEDS ORDERED: ceFAZolin 1 GM Vial ONE (07:41)
[2019-02-14] MEDS ORDERED: Metoclopramide 10 MG/2 ML SDV ONE (07:45)
[2019-02-14] MEDS ORDERED: ceFAZolin 2 GM in Premix Bag 1 BAG IV SCH (08:00)
[2019-02-14] MEDS ORDERED: CLONIDINE INJECT SCH (08:00)
[2019-02-14] MEDS ORDERED: EPINEPHRINE INJECT SCH (08:00)
[2019-02-14] MEDS ORDERED: [UNRECOGNIZED DRUG - OTHER] INJECT SCH (08:00)
[2019-02-14] MEDS ORDERED: ROPIVACAINE INJECT SCH (08:00)
[2019-02-14] MEDS ORDERED: Aluminum Hydroxide/Magnesium Hydroxide/Simethicone Susp 30 ML Cup PO PRN (09:32)
[2019-02-14] MEDS ORDERED: Morphine PF 30 MG/30 ML PCA Vial IV PRN (09:32)
[2019-02-14] MEDS ORDERED: Ondansetron 4 MG/2 ML SDV IVPUSH PRN (09:32)
[2019-02-14] MEDS ORDERED: Bisacodyl 10 MG Supp RECTAL PRN (09:32)
[2019-02-14] MEDS ORDERED: diphenhydrAMINE 25 MG Cap PO PRN (09:32)
[2019-02-14] MEDS ORDERED: Sodium Chloride 0.9% 2.5 ML Syringe FLUSH PRN (09:38)
[2019-02-14] MEDS ORDERED: Sodium Chloride 0.9% 10 ML Syringe FLUSH PRN (09:38)
--- NOTE | 2019-02-14 10:04 | PCM.OPNOTE ---
- General Post-Op/Procedure Note Date of Surgery/Procedure: 02/14/19 Operative Procedure(s): 1. Revision L TKA. 2. Excision L LF mucous cyst Post-Op Diagnosis: 1. Painful left TKA. 2. L LF mucous cyst Anesthesia Technique: Moderate Sedation, Regional Block, Spinal Primary Surgeon: Michelle Odonnell [employer] Foreman: Airam Enriquez [employer] Home Electrical Foreman: Fannie Bowman EBL in mLs: 20 Condition: Good Free Text/Narrative:: #[id number]
--- NOTE | 2019-02-14 10:44 | PCM.POSTAN ---
POST ANESTHESIA ASSESSMENT - MENTAL STATUS Mental Status: Alert - VITAL SIGNS Pulse Rate: 56 SaO2: 96 Resp Rate: 16 Blood Pressure: 119/66 Temperature: 36.3 C - RESPIRATORY Respiratory Status: Respiratory Rate WNL - CARDIOVASCULAR CV Status: Pulse Rate WNL - GASTROINTESTINAL GI Status: No Symptoms - PAIN Pain Score: 0 (SAB level ~T12) - POST OP HYDRATION Hydration Status: Adequate & Stable (Doing well. No problems noted. Adequate for transfer to floor.)
--- NOTE | 2019-02-14 11:24 | CR ---
INDICATION: Left knee revision. TECHNIQUE: Portable AP and cross-table lateral views of the left knee. COMPARISON: None. FINDINGS: Gas is seen within the soft tissues postoperatively. Skin kati anteriorly. The femoral and tibial components are in satisfactory position. IMPRESSION: New left total knee arthroplasty in satisfactory position. Dictated by Anastacio Laughlin MD @ Feb 14 2019 11:21AM Signed by Dr. Anastacio Laughlin @ Feb 14 2019 11:23AM
[2019-02-14] MEDS: oxyCODONE 5 MG Tab PO PRN ×3 (12:50→22:17)
[2019-02-14] MEDS: Acetaminophen 1,000 MG in Premix Bag 1 BAG IV SCH ×2 (12:53→18:34)
[2019-02-14] MEDS: ceFAZolin 2 GM in Premix Bag 1 BAG IV SCH (16:30)
[2019-02-14] MEDS: Docusate Sodium 100 MG Cap PO SCH (20:30)
[2019-02-14] MEDS: Magnesium Oxide 400 MG Tab PO SCH (20:31)
[2019-02-14] MEDS ORDERED: Simvastatin 10 MG Tab PO SCH (21:00)
[2019-02-14] MEDS ORDERED: rOPINIRole 0.5 MG Tab PO SCH (21:00)
[2019-02-15] MEDS: ceFAZolin 2 GM in Premix Bag 1 BAG IV SCH ×2
[2019-02-15] MEDS: Acetaminophen 1,000 MG in Premix Bag 1 BAG IV SCH (00:37)
[2019-02-15] MEDS: oxyCODONE 5 MG Tab PO PRN (02:07)
[2019-02-15] MEDS ORDERED: Morphine 2 MG/ML Syringe IVPUSH PRN (06:00)
[2019-02-15] MEDS: Acetaminophen/oxyCODONE 325-5 MG Tab PO PRN ×3 (07:15→15:19)
[2019-02-15] MEDS ORDERED: Omeprazole 20 MG Cap.CR PO SCH (07:30)
--- NOTE | 2019-02-15 08:53 | PCM.SURGPN ---
<Airam Enriquez R - Last Filed: 02/15/19 08:48> - General Info Date of Service: 02/15/19 Date of Surgery/Procedure: 02/14/19 POD#: 1 Functional Status: Reports: Pain Controlled, Tolerating Diet, Ambulating - Review of Systems General: Reports: No Symptoms Pulmonary: Reports: No Symptoms Cardiovascular: Reports: No Symptoms Gastrointestinal: Reports: No Symptoms Musculoskeletal: Reports: Leg Pain Systems Review Comment:: patient up to chair, sitting comfortably moderate pain overnight, but controlled with PO medications anxious about regaining ROM but feels it has already improved from pre-op minimal LLF pain, bandaid covering wound no specific concerns today - Patient Data Vitals - Most Recent: Last Vital Signs Temp 96.9 F 02/14/19 16:00 Pulse 53 L 02/14/19 16:00 Resp 14 02/14/19 16:00 BP 111/69 02/14/19 16:00 Pulse Ox 94 L 02/14/19 16:00 Weight - Most Recent: 80.739 kg I&O - Last 24 Hours: Intake & Output 02/14/19 02/15/19 02/15/19 22:59 06:59 14:59 Intake Total 1514 1350 Output Total 1000 2200 Balance 514 -850 Lab Results Last 24 Hrs: Laboratory Results - last 24 hr 02/15/19 Range/Units 05:10 Hgb 12.3 (12.0-16.0) g/dL Hct 38.3 (36.0-46.0) % Med Orders - Current: Current Medications Al Hydroxide/Mg Hydroxide (Mag-Al Plus) 30 ml PO Q4H PRN PRN Reason: Indigestion Alprazolam (Xanax) 0.25 mg PO DAILY T[facility] Apixaban (Eliquis) 2.5 mg PO BID [facility] Bisacodyl (Dulcolax) 10 mg RECTAL DAILY PRN PRN Reason: Constipation Calcium Carbonate/Glycine (Tums) 1 mg CHEW DAILY [facility] Cetirizine HCl (Zyrtec) 10 mg PO DAILY [facility] Diphenhydramine HCl (Benadryl) 25 - 50 mg PO Q6H PRN PRN Reason: Itching Last Admin: 02/14/19 22:23 Dose: 25 mg Docusate Sodium (Colace) 100 mg PO BID TAMMY Last Admin: 02/14/19 20:30 Dose: 100 mg Escitalopram Oxalate (Lexapro) 10 mg PO DAILY [facility] Famotidine (Pepcid) 40 mg IVPUSH ONARRIVE [facility] Last Admin: 02/14/19 07:08 Dose: 40 mg Ferrous Sulfate (Ferrous Sulfate) 325 mg PO DAILY [facility] Acetaminophen 1,000 mg/ Premix 100 mls @ 400 mls/hr IV ONARRIVE [facility] Last Admin: 02/14/19 07:08 Dose: 400 mls/hr Cefazolin Sodium/Dextrose 2 gm (/ Premix) 50 mls @ 100 mls/hr IV ONCALL [facility] [place] Lactated Ringer's (Ringers, Lactated) 1,000 mls @ 100 mls/hr IV ASDIRECTED [facility] Last Admin: 02/14/19 22:25 Dose: 100 mls/hr Ropivacaine 49.25 ml/Epinephrine HCl 0.5 mg/Clonidine HCl 80 mcg/ Sodium Chloride 74 mls @ 50 mls/min INJECT ASDIRECTED [facility] Magnesium Oxide (Magnesium Oxide) 400 mg PO BID [facility] Last Admin: 02/14/19 20:31 Dose: 400 mg Morphine Sulfate (Morphine) 1 - 3 mg IVPUSH Q3H PRN PRN Reason: Pain Multivitamins/Minerals/Vitamin C (Tab-A-Fermni) 1 tab PO DAILY [facility] [place] Omeprazole (Omeprazole) 20 mg PO ACBREAKFAST [facility] Last Admin: 02/15/19 07:16 Dose: 20 mg Ondansetron HCl (Zofran) 4 mg IVPUSH Q6H PRN PRN Reason: Nausea/Vomiting Oxycodone/Acetaminophen (Percocet 325-5 Mg) 1 - 2 tab PO Q4H PRN PRN Reason: Pain Last Admin: 02/15/19 07:15 Dose: 1 tab Polyethylene Glycol (Miralax) 17 gm PO DAILY [facility] Ropinirole HCl (Requip) 0.25 mg PO BEDTIME [facility] Last Admin: 02/14/19 20:34 Dose: 0.25 mg Scopolamine (Transderm-Scop) 1.5 mg TRDERM ONARRIVE [facility] Last Admin: 02/14/19 07:12 Dose: 1.5 mg Simvastatin (Zocor) 5 mg PO BEDTIME [facility] Last Admin: 02/14/19 20:31 Dose: 5 mg Sodium Chloride (Saline Flush) 10 ml FLUSH ASDIRECTED PRN PRN Reason: Keep Vein Open Sodium Chloride (Saline Flush) 2.5 ml FLUSH ASDIRECTED PRN PRN Reason: Keep Vein Open Discontinued Medications Cefazolin Sodium (Ancef) Confirm Administered Dose 2 gm .ROUTE .[facility] ONE Stop: 02/14/19 07:42 Ephedrine Sulfate (Ephedrine Sulfate) Confirm Administered Dose 50 mg .ROUTE .[facility] ONE Stop: 02/14/19 07:39 Fentanyl (Sublimaze) Confirm Administered Dose 100 mcg .ROUTE .[facility] ONE Stop: 02/14/19 07:11 Tranexamic Acid 2,000 mg/ (Sodium Chloride) 120 mls @ 600 mls/hr IV ASDIRECTED ONE Stop: 02/10/19 15:25 Ropivacaine 49.25 ml/Epinephrine HCl 0.5 mg/Clonidine HCl 80 mcg/ Sodium Chloride 74 mls @ 50 mls/min INJECT ASDIRECTED [facility] Lidocaine HCl (Xylocaine-Mpf 1%) Confirm Administered Dose 10 mls @ as directed .ROUTE .[facility] ONE Stop: 02/14/19 07:31 Sodium Chloride (Normal Saline) Confirm Administered Dose 20 mls @ as directed .ROUTE .[facility] ONE Stop: 02/14/19 07:40 Sodium Chloride (Normal Saline) Confirm Administered Dose 20 mls @ as directed .ROUTE .[facility] ONE Stop: 02/14/19 08:45 Acetaminophen 1,000 mg/ Premix 100 mls @ 400 mls/hr IV Q6H [facility] Stop: 02/15/19 01:14 Last Admin: 02/15/19 00:37 Dose: 400 mls/hr Cefazolin Sodium/Dextrose 2 gm (/ Premix) 50 mls @ 100 mls/hr IV Q8H [facility] Stop: 02/15/19 00:29 Last Admin: 02/15/19 00:00 Dose: 100 mls/hr Metoclopramide HCl (Reglan) Confirm Administered Dose 10 mg .ROUTE .[facility] ONE Stop: 02/14/19 07:46 Midazolam HCl (Versed 1 Mg/Ml) Confirm Administered Dose 2 mg .ROUTE .[facility] ONE Stop: 02/14/19 07:11 Morphine Sulfate (Morphine Cafeteria Monitor 30 Mg In 30 Ml) 30 mg IV ASDIRECTED PRN; Protocol PRN Reason: Pain Stop: 02/15/19 06:00 Last Admin: 02/14/19 10:21 Dose: 30 mg Ondansetron HCl (Zofran) Confirm Administered Dose 4 mg .ROUTE .[facility] ONE Stop: 02/14/19 07:11 Oxycodone HCl (Oxycodone) 5 - 10 mg PO Q4H PRN PRN Reason: Pain Stop: 02/15/19 06:00 Last Admin: 02/15/19 02:07 Dose: 5 mg Propofol (Diprivan 20 Ml) Confirm Administered Dose 400 mg .ROUTE .[facility] ONE Stop: 02/14/19 07:11 Tranexamic Acid (Cyklokapron) Confirm Administered Dose 2,000 mg .ROUTE .[facility]- MED ONE Stop: 02/14/19 07:31 - Exam Wound/Incisions: Dressing Dry and Intact. No: Drainage, Erythema General: Alert, Oriented Cardiovascular: Regular Rate, Regular Rhythm Extremities: Other (exam LLE - dressing c/d/i, ROM 0-90*, at/ehl/gastroc 5/5, dp 2+, sensation intact distally --- exam LLF, bandaid intact covering wound, cap refill <2 seconds, distal sensation intact) Physical Findings Comment:: vss, afeb uo 4600mL hgb 12.3 - Problem List Review Problem List Initiated/Reviewed/Updated: Yes - My Orders Last 24 Hours: Active Orders 24 hr Category Date Time Status Communication Order [RC] PRN Care 02/14/19 09:33 Active Communication Order [RC] PRN Care 02/14/19 09:33 Active Insert Urinary Catheter [OM.PC] Q24H Care 02/14/19 08:00 Ordered Neurovascular Check [RC] Q2HR Care 02/14/19 09:33 Active Notify Provider Vital Signs [RC] ASDIRECTED Care 02/14/19 09:33 Active RT Incentive Spirometry [RC] Q1HWA Care 02/14/19 09:33 Active Urinary Catheter Removal [RC] ASDIRECTED Care 02/15/19 06:00 Active Vital Signs [RC] PER UNIT ROUTINE Care 02/14/19 09:33 Active Wound Care [RC] DAILY Care 02/14/19 09:33 Active PT Evaluation and Treatment [CONS] Routine Cons 02/14/19 09:33 Active HEMOGLOBIN/HEMATOCRIT,HH [HEME] DAILY Lab 02/16/19 06:00 Ordered ALPRAZolam [Xanax] Med 02/15/19 09:00 Active 0.25 mg PO DAILY Acetaminophen/oxyCODONE [Percocet 325-5 MG] Med 02/15/19 06:00 Active 1 - 2 tab PO Q4H PRN Alum Hydrox/Mag Hydrox/Simeth [Mag-Al Plus] Med 02/14/19 09:32 Active 30 ml PO Q4H PRN Apixaban [Eliquis] Med 02/15/19 09:00 Active 2.5 mg PO BID Bisacodyl [Dulcolax] Med 02/14/19 09:32 Active 10 mg RECTAL DAILY PRN Calcium Carbonate [Tums] Med 02/15/19 09:00 Active 1 mg CHEW DAILY Cetirizine [ZyrTEC] Med 02/15/19 09:00 Active 10 mg PO DAILY Docusate Sodium [Colace] Med 02/14/19 21:00 Active 100 mg PO BID Escitalopram [Lexapro] Med 02/15/19 09:00 Active 10 mg PO DAILY Ferrous Sulfate Med 02/15/19 09:00 Active 325 mg PO DAILY Magnesium Oxide Med 02/14/19 21:00 Active 400 mg PO BID Morphine Med 02/15/19 06:00 Active 1 - 3 mg IVPUSH Q3H PRN Multivitamins [Tab-A-Fermin] Med 02/15/19 09:00 Active 1 tab PO DAILY Omeprazole Med 02/15/19 07:30 Active 20 mg PO ACBREAKFAST Ondansetron [Zofran] Med 02/14/19 09:32 Active 4 mg IVPUSH Q6H PRN Polyethylene Glycol 3350 [MiraLAX] Med 02/15/19 09:00 Active 17 gm PO DAILY Ropivacaine [Naropin 0.2%] 49.25 ml Med 02/14/19 08:00 Active EPINEPHrine [Adrenalin] 0.5 mg cloNIDine [Duraclon] 80 mcg Sodium Chloride 0.9% [Normal Saline] 23.45 ml INJECT ASDIRECTED Simvastatin [Zocor] Med 02/14/19 21:00 Active 5 mg PO BEDTIME Sodium Chloride 0.9% [Saline Flush] Med 02/14/19 09:38 Active 10 ml FLUSH ASDIRECTED PRN Sodium Chloride 0.9% [Saline Flush] Med 02/14/19 09:38 Active 2.5 ml FLUSH ASDIRECTED PRN ceFAZolin [Ancef] 2 gm Med 02/14/19 08:00 Active Premix Bag 1 bag IV ONCALL diphenhydrAMINE [Benadryl] Med 02/14/19 09:32 Active 25 - 50 mg PO Q6H PRN rOPINIRole [Requip] Med 02/14/19 21:00 Active 0.25 mg PO BEDTIME Convert IV to Saline Lock [OM.PC] PRN Oth 02/15/19 06:00 Ordered Ice Therapy [OM.PC] Routine Oth 02/14/19 09:33 Ordered Sequential Compression Device [OM.PC] Routine Oth 02/14/19 08:00 Ordered Medication Orders Al Hydroxide/Mg Hydroxide (Mag-Al Plus) 30 ml PO Q4H PRN PRN Reason: Indigestion Alprazolam (Xanax) 0.25 mg PO DAILY [facility] Apixaban (Eliquis) 2.5 mg PO BID [facility] [place] Bisacodyl (Dulcolax) 10 mg RECTAL DAILY PRN PRN Reason: Constipation Calcium Carbonate/Glycine (Tums) 1 mg CHEW DAILY [facility] Cetirizine HCl (Zyrtec) 10 mg PO DAILY [facility] [place] Diphenhydramine HCl (Benadryl) 25 - 50 mg PO Q6H PRN PRN Reason: Itching Last Admin: 02/14/19 22:23 Dose: 25 mg Docusate Sodium (Colace) 100 mg PO BID [facility] [place] Last Admin: 02/14/19 20:30 Dose: 100 mg Escitalopram Oxalate (Lexapro) 10 mg PO DAILY [facility] [place] Famotidine (Pepcid) 40 mg IVPUSH ONARRIVE [facility] Last Admin: 02/14/19 07:08 Dose: 40 mg Ferrous Sulfate (Ferrous Sulfate) 325 mg PO DAILY [facility] [place] Acetaminophen 1,000 mg/ Premix 100 mls @ 400 mls/hr IV ONARRIVE [facility] Last Admin: 02/14/19 07:08 Dose: 400 mls/hr Cefazolin Sodium/Dextrose 2 gm (/ Premix) 50 mls @ 100 mls/hr IV ONCALL [facility] [place] Lactated Ringer's (Ringers, Lactated) 1,000 mls @ 100 mls/hr IV ASDIRECTED [facility] [place] Last Admin: 02/14/19 22:25 Dose: 100 mls/hr Infusion: 02/14/19 21:42 Dose: 100 mls/hr Admin: 02/14/19 11:42 Dose: 100 mls/hr Infusion: 02/14/19 11:42 Dose: 100 mls/hr Admin: 02/14/19 07:10 Dose: 100 mls/hr Ropivacaine 49.25 ml/Epinephrine HCl 0.5 mg/Clonidine HCl 80 mcg/ Sodium Chloride 74 mls @ 50 mls/min INJECT ASDIRECTED [facility] Magnesium Oxide (Magnesium Oxide) 400 mg PO BID [facility] Last Admin: 02/14/19 20:31 Dose: 400 mg Morphine Sulfate (Morphine) 1 - 3 mg IVPUSH Q3H PRN PRN Reason: Pain Multivitamins/Minerals/Vitamin C (Tab-A-Fermin) 1 tab PO DAILY [facility] Omeprazole (Omeprazole) 20 mg PO ACBREAKFAST [facility] [place] Last Admin: 02/15/19 07:16 Dose: 20 mg Ondansetron HCl (Zofran) 4 mg IVPUSH Q6H PRN PRN Reason: Nausea/Vomiting Oxycodone/Acetaminophen (Percocet 325-5 Mg) 1 - 2 tab PO Q4H PRN PRN Reason: Pain Last Admin: 02/15/19 07:15 Dose: 1 tab Polyethylene Glycol (Miralax) 17 gm PO DAILY [facility] Ropinirole HCl (Requip) 0.25 mg PO BEDTIME [facility] Last Admin: 02/14/19 20:34 Dose: 0.25 mg Scopolamine (Transderm-Scop) 1.5 mg TRDERM ONARRIVE [facility] [place] Last Admin: 02/14/19 07:12 Dose: 1.5 mg Simvastatin (Zocor) 5 mg PO BEDTIME [facility] [place] Last Admin: 02/14/19 20:31 Dose: 5 mg Sodium Chloride (Saline Flush) 10 ml FLUSH ASDIRECTED PRN PRN Reason: Keep Vein Open Sodium Chloride (Saline Flush) 2.5 ml FLUSH ASDIRECTED PRN PRN Reason: Keep Vein Open - Assessment Assessment (Free Text/Narrative):: POD#1 revision L TKA, excision LLF cyst - Plan Plan (Free Text/Narrative):: DC IV fluids - saline lock 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 d/ch medications written <Michelle Odonnell R - Last Filed: 02/15/19 14:04> - Patient Data Vitals - Most Recent: Last Vital Signs Temp 98.8 F 02/15/19 12:00 Pulse 80 02/15/19 12:00 Resp 16 02/15/19 12:00 BP 115/64 02/15/19 12:00 Pulse Ox 95 02/15/19 12:00 I&O - Last 24 Hours: Intake & Output 02/14/19 02/15/19 02/15/19 22:59 06:59 14:59 Intake Total 1514 1350 Output Total 1000 2200 Balance 514 -850 Lab Results Last 24 Hrs: Laboratory Results - last 24 hr 02/15/19 Range/Units 05:10 Hgb 12.3 (12.0-16.0) g/dL Hct 38.3 (36.0-46.0) % Med Orders - Current: Current Medications Al Hydroxide/Mg Hydroxide (Mag-Al Plus) 30 ml PO Q4H PRN PRN Reason: Indigestion Alprazolam (Xanax) 0.25 mg PO DAILY [facility] Last Admin: 02/15/19 09:03 Dose: 0.25 mg Apixaban (Eliquis) 2.5 mg PO BID [facility] Last Admin: 02/15/19 09:04 Dose: 2.5 mg Bisacodyl (Dulcolax) 10 mg RECTAL DAILY PRN PRN Reason: Constipation Calcium Carbonate/Glycine (Tums) 1 mg CHEW DAILY [facility] [place] Last Admin: 02/15/19 09:04 Dose: 500 mg Cetirizine HCl (Zyrtec) 10 mg PO DAILY [facility] [place] Last Admin: 02/15/19 09:04 Dose: 10 mg Diphenhydramine HCl (Benadryl) 25 - 50 mg PO Q6H PRN PRN Reason: Itching Last Admin: 02/14/19 22:23 Dose: 25 mg Docusate Sodium (Colace) 100 mg PO BID [facility] [place] Last Admin: 02/15/19 09:03 Dose: 100 mg Escitalopram Oxalate (Lexapro) 10 mg PO DAILY [facility] [place] Last Admin: 02/15/19 09:03 Dose: 10 mg Famotidine (Pepcid) 40 mg IVPUSH ONARRIVE [facility] [place] Last Admin: 02/14/19 07:08 Dose: 40 mg Ferrous Sulfate (Ferrous Sulfate) 325 mg PO DAILY [facility] [place] Last Admin: 02/15/19 09:04 Dose: 325 mg Acetaminophen 1,000 mg/ Premix 100 mls @ 400 mls/hr IV ONARRIVE [facility] Last Admin: 02/14/19 07:08 Dose: 400 mls/hr Cefazolin Sodium/Dextrose 2 gm (/ Premix) 50 mls @ 100 mls/hr IV ONCALL [facility] [place] Lactated Ringer's (Ringers, Lactated) 1,000 mls @ 100 mls/hr IV ASDIRECTED [facility] Last Admin: 02/14/19 22:25 Dose: 100 mls/hr Ropivacaine 49.25 ml/Epinephrine HCl 0.5 mg/Clonidine HCl 80 mcg/ Sodium Chloride 74 mls @ 50 mls/min INJECT ASDIRECTED [facility] [place] Magnesium Oxide (Magnesium Oxide) 400 mg PO BID [facility] [place] Last Admin: 02/15/19 09:03 Dose: 400 mg Morphine Sulfate (Morphine) 1 - 3 mg IVPUSH Q3H PRN PRN Reason: Pain Multivitamins/Minerals/Vitamin C (Tab-A-Fermin) 1 tab PO DAILY [facility] [place] Last Admin: 02/15/19 09:03 Dose: 1 tab Omeprazole (Omeprazole) 20 mg PO ACBREAKFAST [facility] Last Admin: 02/15/19 07:16 Dose: 20 mg Ondansetron HCl (Zofran) 4 mg IVPUSH Q6H PRN PRN Reason: Nausea/Vomiting Oxycodone/Acetaminophen (Percocet 325-5 Mg) 1 - 2 tab PO Q4H PRN PRN Reason: Pain Last Admin: 02/15/19 11:01 Dose: 2 tab Polyethylene Glycol (Miralax) 17 gm PO DAILY [facility] [place] Last Admin: 02/15/19 09:03 Dose: 17 gm Ropinirole HCl (Requip) 0.25 mg PO BEDTIME [facility] Last Admin: 02/14/19 20:34 Dose: 0.25 mg Scopolamine (Transderm-Scop) 1.5 mg TRDERM ONARRIVE [facility] Last Admin: 02/14/19 07:12 Dose: 1.5 mg Simvastatin (Zocor) 5 mg PO BEDTIME [facility] Last Admin: 02/14/19 20:31 Dose: 5 mg Sodium Chloride (Saline Flush) 10 ml FLUSH ASDIRECTED PRN PRN Reason: Keep Vein Open Sodium Chloride (Saline Flush) 2.5 ml FLUSH ASDIRECTED PRN PRN Reason: Keep Vein Open Discontinued Medications Cefazolin Sodium (Ancef) Confirm Administered Dose 2 gm .ROUTE .[facility] ONE Stop: 02/14/19 07:42 Ephedrine Sulfate (Ephedrine Sulfate) Confirm Administered Dose 50 mg .ROUTE .[facility] ONE Stop: 02/14/19 07:39 Fentanyl (Sublimaze) Confirm Administered Dose 100 mcg .ROUTE .[facility] ONE Stop: 02/14/19 07:11 Tranexamic Acid 2,000 mg/ (Sodium Chloride) 120 mls @ 600 mls/hr IV ASDIRECTED ONE Stop: 02/10/19 15:25 Ropivacaine 49.25 ml/Epinephrine HCl 0.5 mg/Clonidine HCl 80 mcg/ Sodium Chloride 74 mls @ 50 mls/min INJECT ASDIRECTED [facility] Lidocaine HCl (Xylocaine-Mpf 1%) Confirm Administered Dose 10 mls @ as directed .ROUTE .[facility]-MED ONE Stop: 02/14/19 07:31 Sodium Chloride (Normal Saline) Confirm Administered Dose 20 mls @ as directed .ROUTE .[facility] ONE Stop: 02/14/19 07:40 Sodium Chloride (Normal Saline) Confirm Administered Dose 20 mls @ as directed .ROUTE .[facility] ONE Stop: 02/14/19 08:45 Acetaminophen 1,000 mg/ Premix 100 mls @ 400 mls/hr IV Q6H [facility] Stop: 02/15/19 01:14 Last Admin: 02/15/19 00:37 Dose: 400 mls/hr Cefazolin Sodium/Dextrose 2 gm (/ Premix) 50 mls @ 100 mls/hr IV Q8H [facility] Stop: 02/15/19 00:29 Last Admin: 02/15/19 00:00 Dose: 100 mls/hr Metoclopramide HCl (Reglan) Confirm Administered Dose 10 mg .ROUTE .[facility] ONE Stop: 02/14/19 07:46 Midazolam HCl (Versed 1 Mg/Ml) Confirm Administered Dose 2 mg .ROUTE .[facility] ONE Stop: 02/14/19 07:11 Morphine Sulfate (Morphine Cafeteria Monitor 30 Mg In 30 Ml) 30 mg IV ASDIRECTED PRN; Protocol PRN Reason: Pain Stop: 02/15/19 06:00 Last Admin: 02/14/19 10:21 Dose: 30 mg Ondansetron HCl (Zofran) Confirm Administered Dose 4 mg .ROUTE .[facility] ONE Stop: 02/14/19 07:11 Oxycodone HCl (Oxycodone) 5 - 10 mg PO Q4H PRN PRN Reason: Pain Stop: 02/15/19 06:00 Last Admin: 02/15/19 02:07 Dose: 5 mg Propofol (Diprivan 20 Ml) Confirm Administered Dose 400 mg .ROUTE .[facility] Stop: 02/14/19 07:11 Tranexamic Acid (Cyklokapron) Confirm Administered Dose 2,000 mg .ROUTE .[facility] ONE Stop: 02/14/19 07:31 - Problem List Review Problem List Initiated/Reviewed/Updated: Yes - My Orders Last 24 Hours: Active Orders 24 hr Category Date Time Status Urinary Catheter Removal [RC] ASDIRECTED Care 02/15/19 06:00 Active HEMOGLOBIN/HEMATOCRIT,HH [HEME] DAILY Lab 02/16/19 06:00 Ordered ALPRAZolam [Xanax] Med 02/15/19 09:00 Active 0.25 mg PO DAILY Acetaminophen/oxyCODONE [Percocet 325-5 MG] Med 02/15/19 06:00 Active 1 - 2 tab PO Q4H PRN Apixaban [Eliquis] Med 02/15/19 09:00 Active 2.5 mg PO BID Calcium Carbonate [Tums] Med 02/15/19 09:00 Active 1 mg CHEW DAILY Cetirizine [ZyrTEC] Med 02/15/19 09:00 Active 10 mg PO DAILY Docusate Sodium [Colace] Med 02/14/19 21:00 Active 100 mg PO BID Escitalopram [Lexapro] Med 02/15/19 09:00 Active 10 mg PO DAILY Ferrous Sulfate Med 02/15/19 09:00 Active 325 mg PO DAILY Magnesium Oxide Med 02/14/19 21:00 Active 400 mg PO BID Morphine Med 02/15/19 06:00 Active 1 - 3 mg IVPUSH Q3H PRN Multivitamins [Tab-A-Fermin] Med 02/15/19 09:00 Active 1 tab PO DAILY Omeprazole Med 02/15/19 07:30 Active 20 mg PO ACBREAKFAST Polyethylene Glycol 3350 [MiraLAX] Med 02/15/19 09:00 Active 17 gm PO DAILY Simvastatin [Zocor] Med 02/14/19 21:00 Active 5 mg PO BEDTIME rOPINIRole [Requip] Med 02/14/19 21:00 Active 0.25 mg PO BEDTIME Convert IV to Saline Lock [OM.PC] PRN Oth 02/15/19 06:00 Ordered Medication Orders Al Hydroxide/Mg Hydroxide (Mag-Al Plus) 30 ml PO Q4H PRN PRN Reason: Indigestion Alprazolam (Xanax) 0.25 mg PO DAILY [facility] Last Admin: 02/15/19 09:03 Dose: 0.25 mg Apixaban (Eliquis) 2.5 mg PO BID [facility] Last Admin: 02/15/19 09:04 Dose: 2.5 mg Bisacodyl (Dulcolax) 10 mg RECTAL DAILY PRN PRN Reason: Constipation Calcium Carbonate/Glycine (Tums) 1 mg CHEW DAILY [facility] Last Admin: 02/15/19 09:04 Dose: 500 mg Cetirizine HCl (Zyrtec) 10 mg PO DAILY [facility] Last Admin: 02/15/19 09:04 Dose: 10 mg Diphenhydramine HCl (Benadryl) 25 - 50 mg PO Q6H PRN PRN Reason: Itching Last Admin: 02/14/19 22:23 Dose: 25 mg Docusate Sodium (Colace) 100 mg PO BID [facility] Last Admin: 02/15/19 09:03 Dose: 100 mg Admin: 02/14/19 20:30 Dose: 100 mg Escitalopram Oxalate (Lexapro) 10 mg PO DAILY [facility] Last Admin: 02/15/19 09:03 Dose: 10 mg Famotidine (Pepcid) 40 mg IVPUSH ONARRIVE [facility] Last Admin: 02/14/19 07:08 Dose: 40 mg Ferrous Sulfate (Ferrous Sulfate) 325 mg PO DAILY [facility] [place] Last Admin: 02/15/19 09:04 Dose: 325 mg Acetaminophen 1,000 mg/ Premix 100 mls @ 400 mls/hr IV ONARRIVE [facility] [place] Last Admin: 02/14/19 07:08 Dose: 400 mls/hr Cefazolin Sodium/Dextrose 2 gm (/ Premix) 50 mls @ 100 mls/hr IV ONCALL [facility] [place] Lactated Ringer's (Ringers, Lactated) 1,000 mls @ 100 mls/hr IV ASDIRECTED [facility] [place] Last Admin: 02/14/19 22:25 Dose: 100 mls/hr Infusion: 02/14/19 21:42 Dose: 100 mls/hr Admin: 02/14/19 11:42 Dose: 100 mls/hr Infusion: 02/14/19 11:42 Dose: 100 mls/hr Admin: 02/14/19 07:10 Dose: 100 mls/hr Ropivacaine 49.25 ml/Epinephrine HCl 0.5 mg/Clonidine HCl 80 mcg/ Sodium Chloride 74 mls @ 50 mls/min INJECT ASDIRECTED [facility] [place] Magnesium Oxide (Magnesium Oxide) 400 mg PO BID [facility] [place] Last Admin: 02/15/19 09:03 Dose: 400 mg Admin: 02/14/19 20:31 Dose: 400 mg Morphine Sulfate (Morphine) 1 - 3 mg IVPUSH Q3H PRN PRN Reason: Pain Multivitamins/Minerals/Vitamin C (Tab-A-Fermin) 1 tab PO DAILY [facility] [place] Last Admin: 02/15/19 09:03 Dose: 1 tab Omeprazole (Omeprazole) 20 mg PO ACBREAKFAST [facility] [place] Last Admin: 02/15/19 07:16 Dose: 20 mg Ondansetron HCl (Zofran) 4 mg IVPUSH Q6H PRN PRN Reason: Nausea/Vomiting Oxycodone/Acetaminophen (Percocet 325-5 Mg) 1 - 2 tab PO Q4H PRN PRN Reason: Pain Last Admin: 02/15/19 11:01 Dose: 2 tab Admin: 02/15/19 07:15 Dose: 1 tab Polyethylene Glycol (Miralax) 17 gm PO DAILY [facility] [place] Last Admin: 02/15/19 09:03 Dose: 17 gm Ropinirole HCl (Requip) 0.25 mg PO BEDTIME [facility] Last Admin: 02/14/19 20:34 Dose: 0.25 mg Scopolamine (Transderm-Scop) 1.5 mg TRDERM ONARRIVE [facility] Last Admin: 02/14/19 07:12 Dose: 1.5 mg Simvastatin (Zocor) 5 mg PO BEDTIME [facility] Last Admin: 02/14/19 20:31 Dose: 5 mg Sodium Chloride (Saline Flush) 10 ml FLUSH ASDIRECTED PRN PRN Reason: Keep Vein Open Sodium Chloride (Saline Flush) 2.5 ml FLUSH ASDIRECTED PRN PRN Reason: Keep Vein Open - Plan Plan (Free Text/Narrative):: 1300 Patient seen and examined. Agree with the above note. Patient is currently sitting up in a chair. Her pain has been well-controlled. She has been progressing with physical therapy including the use of stairs. Her hemoglobin is stable. She has no other concerns today. Exam of the left lower extremity shows the dressing to be dry and intact. She has no calf tenderness. AT/EHL/gastroc 5/5. Sensation grossly intact. DP/PT pulses 2+. Exam of the left long finger shows a Band-Aid to be in place. She has good sensation and capillary refill distally. 1. SCDs/RICH hose when necessary for DVT prophylaxis, aspirin 4 weeks 2. Patient feels she is ready to go home later today. I recommended that she continue with a home exercise program until she is seen on an outpatient basis by physical therapy. She is advised to contact us if she has questions or concerns when she returns home. shanell
[2019-02-15] MEDS ORDERED: ALPRAZolam 0.25 MG Tab PO SCH (09:00)
[2019-02-15] MEDS ORDERED: Cetirizine 10 MG Tab PO SCH (09:00)
[2019-02-15] MEDS ORDERED: Polyethylene Glycol 3350 Powder 17 GM Packet PO SCH (09:00)
[2019-02-15] MEDS ORDERED: Multivitamin Tab PO SCH (09:00)
[2019-02-15] MEDS ORDERED: Apixaban 2.5 MG Tab PO SCH (09:00)
[2019-02-15] MEDS ORDERED: Calcium Carbonate 500 MG Tab.Chew CHEW SCH (09:00)
[2019-02-15] MEDS ORDERED: Escitalopram 10 MG Tab PO SCH (09:00)
[2019-02-15] MEDS ORDERED: Ferrous Sulfate 325 MG Tab PO SCH (09:00)
[2019-02-15] MEDS: Magnesium Oxide 400 MG Tab PO SCH (09:03)
[2019-02-15] MEDS: Docusate Sodium 100 MG Cap PO SCH (09:03)
--- NOTE | 2019-02-15 10:29 | PCM48HPAN ---
Post Anesthesia Note - EVALUATION WITHIN 48HRS OF ANESTHETIC Vital Signs in Normal Range: Yes Patient Participated in Evaluation: Yes Respiratory Function Stable: Yes Airway Patent: Yes Cardiovascular Function Stable: Yes Hydration Status Stable: Yes Pain Control Satisfactory: Yes Nausea and Vomiting Control Satisfactory: Yes Mental Status Recovered: Yes Pulse Rate: 56 Resp Rate: 16 Temperature: 36.3 C Blood Pressure: 119/66 - COMMENTS/OBSERVATIONS Free Text/Narrative:: no anesthesia problems
--- NOTE | 2019-02-15 16:31 | PCM.SN ---
- Free Text/Narrative Note: d/ch summary #[id number]
[2019-02-15 16:32] VITALS: BP 103/58
--- NOTE | 2019-02-16 08:19 | OR ---
SURGEON: Michelle Odonnell MD DATE OF PROCEDURE: 02/14/2019 PREOPERATIVE DIAGNOSES: 1. Degenerative joint disease, left knee. 2. Painful left total knee arthroplasty. 3. Left long finger mucous cyst. POSTOPERATIVE DIAGNOSES: 1. Degenerative joint disease, left knee. 2. Painful left total knee arthroplasty. 3. Left long finger mucous cyst. PROCEDURE: 1. Left total knee arthroplasty revision with replacement of polyethylene liner. 2. Excision of left long finger mucous cyst. PRIMARY SURGEON: Michelle Odonnell MD. SALES ORDER CLERK: Airam Enriquez PA-C. REASON AND ROLE FOR SALES ORDER CLERK: Retraction, prepping, draping, positioning, and closure assistance. ANESTHESIA: Spinal with sedation and digital block. ESTIMATED BLOOD LOSS: 20 mL. TOURNIQUET TIME: See nursing record. COMPLICATIONS: None. DVT PROPHYLAXIS: PAS boot to the nonoperative leg. IMPLANTS USED: Sandra Persona 13 mm all-polyethylene articular surface. BRIEF HISTORY: Jade Cortes is a 63-year-old female who previously underwent a left total knee arthroplasty in November of 2017. Postoperatively, she developed arthrofibrosis of the knee and subsequently underwent a knee manipulation. She has continued to have difficulty with the knee, along with continued pain and a catching sensation. She has also developed a mucous cyst over the distal phalanx of the left long finger. We did attempt aspiration in clinic, which worked for a short time, however, the cyst has now recurred. Due to her lack of response to conservative treatment, I recommended surgical exploration of the left total knee arthroplasty, as well as excision of the left long finger mucous cyst. The risks and goals of the procedures were discussed with the patient and were documented preoperatively. She agreed to proceed. DESCRIPTION OF PROCEDURE: The patient was properly identified and brought to the operating room. Spinal anesthesia was administered. After adequate anesthesia was obtained, she was placed in a supine position. A well-padded tourniquet was applied to the left lower extremity. The left lower extremity was then prepped in standard fashion using ChloraPrep solution. It was then sterilely draped. The left upper extremity was prepped in standard fashion as well. This was also sterilely draped. A time-out was performed to ensure correct site and procedures. Preoperative antibiotics along with 1 g of TXA was given. I turned my attention to the left long finger first. She did have a small cyst with callus formation noted over the radial aspect of the left long finger. This did not appear to be connected to the DIP joint, as a Heberden's node was noted in that area. The site of the previous excision was identified. There was some callus formation around this. The callus was ellipsed to remove the skin. The mucous cyst was then identified. Using a #15 blade scalpel, I was able to excise the wall of the cyst. A rongeur was used to remove the remaining wall. The wound was then copiously irrigated with saline solution. The skin was reapproximated easily with 4-0 nylon. A Band-Aid was then placed. It should be noted that prior to the procedure, digital block was performed using 1% lidocaine. We then turned our attention to the left knee. An Esmarch was used to exsanguinate the left lower extremity and the tourniquet was inflated to 250 mmHg. An incision was made over the site of the previous incision. Subcutaneous tissues were incised. The medial parapatellar approach was then made to the knee. A small amount of straw-colored fluid was noted in the knee. There was no evidence of purulence. The tissues were identified. She did have a large amount of scar tissue within the suprapatellar area, however, this did not appear to be inflamed. The polyethylene was then identified and this was removed without difficulty. The medial and lateral gutters showed overgrowth of scar tissue and this was also excised. A PCL was used to translate the anterior tibia forward. There was some scar tissue in the posterior aspect of the knee. The popliteus was identified. This did not appear to be tight or causing any impingement. The patella was then everted. She had significant scar tissue surrounding the patella and it was nearly overgrown. Scar tissue was also noted along the superior aspect of the patella. This was excised with electrocautery. The knee stability was assessed prior to removal of the polyethylene. She did have slight laxity with varus and valgus stressing with no significant anterior translation. I elected to replace the polyethylene from a 12 to a 13. The wound was copiously irrigated with saline solution using a Pulsavac director of medical staff services. A 13 mm polyethylene was then placed. This locked easily into position. The knee was again taken through a range of motion. She had full range of motion and the patella appeared to track centrally. The tourniquet was then deflated. No excess bleeding was noted. A mixture of clonidine, ropivacaine, with epinephrine was then injected into the soft tissues. The fascia was closed with 0 Vicryl. Subcutaneous tissues were closed with 2-0 Vicryl, and the skin was closed with kati. Xeroform gauze was placed over the wound and a bulky dressing was applied. She was awakened from her anesthetic and transferred back to the operating room cart. She was brought to recovery room in stable condition. All needle and sponge counts were correct. LASHAE / PRAVEENA /[id number]
--- NOTE | 2019-02-16 15:44 | DISCH ---
DATE OF DISCHARGE: 02/15/2019 PRIMARY CARE PHYSICIAN: Colby Velasquez ADMITTING DIAGNOSES: 1. Painful left total knee arthroplasty. 2. Cyst of left long finger. OTHER MEDICAL DIAGNOSES: 1. Hypertension. 2. Gastroesophageal reflux disease. 3. Restless leg. 4. Iron-deficiency anemia. 5. Dyslipidemia. 6. Anxiety. DISCHARGE DIAGNOSES: 1. Painful left total knee arthroplasty. 2. Cyst of left long finger. 3. Hypertension. 4. Gastroesophageal reflux disease. 5. Restless leg. 6. Iron-deficiency anemia. 7. Dyslipidemia. 8. Anxiety. BRIEF HISTORY: Jade is a 63-year-old female who has previously undergone a left total knee arthroplasty in November 2017. She subsequently underwent a left total knee manipulation in April 2018. She has had continued pain and stiffness in the left knee. She failed to respond to conservative treatment. Inflammatory laboratory work has been done, which showed normal ESR and CRP. At that time, surgical treatment was recommended for the left knee. She also has noted a mucous cyst on the left long finger and is having this excised as well. On February 14, 2019, the patient underwent an excision of left long finger mucous cyst under digital block. Upon completion of that procedure, attention was turned to the left knee. She then underwent a revision of a left total knee arthroplasty done under spinal anesthesia with sedation. ESTIMATED BLOOD LOSS: 20 mL. TOURNIQUET TIME: 18 minutes. There were no complications. Upon completion of the procedure, the patient was transferred to the PACU and subsequently to [facility] for postoperative care. HOSPITAL COURSE: Postoperatively, the patient did well. She received 2 doses of antibiotics postoperatively for total of 24 hours of antibiotic coverage. Physical therapy followed her through her hospital stay. Her pain was controlled with a combination of oral and IV pain medications. Eliquis 2.5 mg was started on postoperative day #1 as DVT prophylaxis. Her vital signs have been stable. She has been afebrile. Her hemoglobin on the morning of February 15 was 12.3. At this time, the patient is doing well. Her pain is controlled with oral pain medications only. She is ambulating well with a wheeled walker. She is tolerating oral intake. She feels comfortable with discharge to home. DISCHARGE MEDICATIONS: 1. Percocet 5/325. 2. Eliquis 2.5 mg. 3. Colace 100 mg. 4. MiraLAX. For discharge instructions, please refer back to Dr. Odonnell's postoperative total knee arthroplasty patient instructions. For complete medication reconciliation, please refer back to the patient's EHR. Should she have questions or concerns prior to followup, she has been advised to contact the clinic. AMERICA GRISSOM /[id number]
== END 2019-02-15 17:43 | disposition home or self-care (01) | DRG 320 ==
LOC: MW.MS 06:35 → EDSTATUS 08:00
PROVIDERS: ADMIT Orthopaedic Surgery; ATTEND Orthopaedic Surgery
PROC: 0HBGXZZ Excision of Left Hand Skin, External Approach (ICD-10-PCS; principal; 2019-02-14)
PROC: 0SPD09Z Removal of Liner from Left Knee Joint, Open Approach (ICD-10-PCS; 2019-02-14)
PROC: 0SUD09C Supplement Left Knee Joint with Liner, Patellar Surface, Open Approach (ICD-10-PCS; 2019-02-14)
DX: T84.84XA Pain due to internal orthopedic prosthetic devices, implants and grafts, initial encounter (principal); Y83.1 Surgical operation with implant of artificial internal device as the cause of abnormal reaction of the patient, or of later complication, without mention of misadventure at the time of the procedure; K21.9 Gastro-esophageal reflux disease without esophagitis; M71.342 Other bursal cyst, left hand; D50.9 Iron deficiency anemia, unspecified; L84 Corns and callosities; E78.00 Pure hypercholesterolemia, unspecified; I10 Essential (primary) hypertension; F41.9 Anxiety disorder, unspecified; G25.81 Restless legs syndrome; E66.9 Obesity, unspecified; G43.109 Migraine with aura, not intractable, without status migrainosus; Z88.6 Allergy status to analgesic agent; Z87.891 Personal history of nicotine dependence; Z68.27 Body mass index [BMI] 27.0-27.9, adult; Z86.010 Personal history of colon polyps; Z90.89 Acquired absence of other organs; Z79.899 Other long term (current) drug therapy
CPT/HCPCS: 36415; 73560-26-LT; 73560-LT; 85014; 85018; 86850; 86900; 86901; 97110-GP; 97161-GP; 97530-GP; A4217; A9270-GY; C1776; J0131; J0171; J0690; J0735; J2001; J2250; J2274; J2405; J2704; J2765; J2795; J3010; J3490; J7030; J7050; J7120

== ENCOUNTER 2019-05-31 07:04 | Day surgery (SDC) | payer BC ==
[~2019-05-31 07:04] MED LIST changes: -Acetaminophen 1,000 MG in Premix Bag 1 BAG IV SCH; -CLONIDINE INJECT SCH; -EPINEPHRINE INJECT SCH; -Famotidine 20 MG/2 ML SDV IVPUSH SCH; +Lactated Ringers 1,000 ML IV SCH; -ROPIVACAINE INJECT SCH; -Scopolamine 1.5 MG Transdermal Patch TRDERM SCH; +Sodium Chloride 0.9% 10 ML SDV IV PRN; +Sodium Chloride 0.9% 10 ML Syringe FLUSH PRN; +Sodium Chloride 0.9% 2.5 ML Syringe FLUSH PRN; -Tranexamic Acid 2,000 MG in Sodium Chloride 0.9% 100 ML IV ONE; -[UNRECOGNIZED DRUG - OTHER] INJECT SCH
[2019-05-31] MEDS ORDERED: fentaNYL 100 MCG/2 ML SDV ONE (07:24)
[2019-05-31] MEDS ORDERED: Lidocaine 2% 5 ML SDV ONE (07:24)
[2019-05-31] MEDS ORDERED: Propofol 200 MG/20 ML SDV ONE (07:24)
--- NOTE | 2019-05-31 07:37 | PCM.PREANE ---
Preanesthetic Assessment - Anesthesia/Transfusion/Family Hx Anesthesia History: Prior Anesthesia Reaction Other Type of Anesthesia Reaction Comment: states has "problems with nausea after surgery" Family History of Anesthesia Reaction: No Transfusion History: No Prior Transfusion(s) Intubation History: Unknown - Review of Systems General: No Symptoms Pulmonary: No Symptoms Cardiovascular: No Symptoms Gastrointestinal: No Symptoms Neurological: No Symptoms Other: Reports: None - Physical Assessment NPO Status Date: 05/30/19 Vital Signs: Last Vital Signs Temp 97.2 F 05/31/19 07:17 Pulse 68 05/31/19 07:17 Resp 14 05/31/19 07:17 BP 131/90 05/31/19 07:17 Pulse Ox 98 05/31/19 07:17 Height: 5 ft 7 in Weight: 79.832 kg ASA Class: 2 Mental Status: Alert & Oriented x3 Airway Class: Mallampati = 3 Dentition: Reports: Normal Dentition ROM/Head Extension: Full Lungs: Clear to Auscultation, Normal Respiratory Effort Cardiovascular: Regular Rate, Regular Rhythm - Allergies Allergies/Adverse Reactions: Allergies Allergy/AdvReac Type Severity Reaction Status Date / Time aspirin Allergy Hives Verified 05/26/19 07:55 ibuprofen Allergy Hives Verified 05/26/19 07:55 - Blood Blood Available: No - Acknowledgements Anesthesia Type Planned: General Anesthesia Pt an Appropriate Candidate for the Planned Anesthesia: Yes Alternatives and Risks of Anesthesia Discussed w Pt/Guardian: Yes Pt/Guardian Understands and Agrees with Anesthesia Plan: Yes Additional Comments: PMH: restless leg syndrome Inactive medical problems: Barretts- negative on last few EGDs, Chandrika was post op for TKA- is not taking now Errors in problem list: has never had LUIZ PLAN: tiva PreAnesthesia Questionnaire HEENT History: Reports: Other (See Below) Other HEENT History: wears glasses Cardiovascular History: Reports: High Cholesterol Respiratory History: Reports: None Gastrointestinal History: Reports: Colon Polyp, GERD, Other (See Below) Other Gastrointestinal History: hx of Barretts Esophagus Genitourinary History: Reports: None Musculoskeletal History: Reports: Arthritis Other Musculoskeletal History: hx of fx arm Neurological History: Reports: Other (See Below) Other Neuro History: restless leg syndrome, hx of motion sickness Psychiatric History: Reports: Anxiety Endocrine/Metabolic History: Reports: None Hematologic History: Reports: Iron Deficiency Immunologic History: Reports: None Oncologic (Cancer) History: Reports: None Dermatologic History: Reports: None - Infectious Disease History Infectious Disease History: Reports: Chicken Pox, Measles - Past Surgical History Head Surgeries/Procedures: Reports: None HEENT Surgical History: Reports: Adenoidectomy, Tonsillectomy Cardiovascular Surgical History: Reports: None Respiratory Surgical History: Reports: None GI Surgical History: Reports: Colonoscopy, EGD Female Surgical History: Reports: Hysterectomy Other Female Surgeries/Procedures: Bladder Enterocystoplasty (anterior and posterior prolapse repair) Endocrine Surgical History: Reports: None Neurological Surgical History: Reports: None Musculoskeletal Surgical History: Reports: Knee Replacement Other Musculoskeletal Surgeries/Procedures:: hx left knee surgery, hx hardware removal to left knee and revision of left TKA Dermatological Surgical History: Reports: None - SUBSTANCE USE Smoking Status *Q: Former Smoker Recreational Drug Use History: No - HOME MEDS Home Medications: Home Meds ALPRAZolam [Alprazolam] 0.25 mg PO DAILY PRN MDD 0.50 03/22/15 [History] Cetirizine HCl 10 mg PO DAILY 03/22/15 [History] Magnesium Oxide [Magnesium] 2 tab PO DAILY 03/22/15 [History] Multivitamin [Multi-Vitamin Daily] 1 tab.chew CHEW DAILY 03/22/15 [History] Simvastatin 5 mg PO BEDTIME 03/22/15 [History] Ferrous Gluconate [Iron] 240 mg PO DAILY 07/10/17 [History] rOPINIRole HCl [Requip] 2 tab PO BEDTIME 07/10/17 [History] Calcium Carbonate/Vitamin D3 [Calcium 500-Vit D3 400 Chew Tb] 1 tab CHEW DAILY 02/10/19 [History] Escitalopram Oxalate 5 mg PO ASDIRECTED 05/26/19 [History] RABEprazole Sodium [Aciphex] 20 mg PO ASDIRECTED 05/26/19 [History] - CURRENT (IN HOUSE) MEDS Current Meds: Current Medications Lactated Ringer's (Ringers, Lactated) 1,000 mls @ 125 mls/hr IV ASDIRECTED TAMMY Last Admin: 05/31/19 07:17 Dose: 125 mls/hr Sodium Chloride (Saline Flush) 10 ml FLUSH ASDIRECTED PRN PRN Reason: Keep Vein Open Sodium Chloride (Saline Flush) 2.5 ml FLUSH ASDIRECTED PRN PRN Reason: Keep Vein Open Sodium Chloride (Saline Flush) 10 ml FLUSH ASDIRECTED PRN PRN Reason: Keep Vein Open Sodium Chloride (Saline Flush) 2.5 ml FLUSH ASDIRECTED PRN PRN Reason: Keep Vein Open Sodium Chloride (Normal Saline) 10 ml IV ASDIRECTED PRN PRN Reason: IV Use Discontinued Medications Fentanyl (Sublimaze) Confirm Administered Dose 100 mcg .ROUTE .STK-MED ONE Stop: 05/31/19 07:25 Lidocaine (Xylocaine-Mpf 2%) Confirm Administered Dose 5 ml .ROUTE .STK-MED ONE Stop: 05/31/19 07:25 Propofol (Diprivan 20 Ml) Confirm Administered Dose 400 mg .ROUTE .STK-MED ONE Stop: 05/31/19 07:25
[2019-05-31] MEDS ORDERED: Glycopyrrolate 0.2 MG/ML SDV ONE (08:08)
--- NOTE | 2019-05-31 09:07 | PCM.OPNOTE ---
- General Post-Op/Procedure Note Date of Surgery/Procedure: 05/31/19 Operative Procedure(s): Colonoscopy Findings: Sigmoid colon polyp Pre Op Diagnosis: History of colon polyps Post-Op Diagnosis: Sigmoid colon polyp Anesthesia Technique: MAC Primary Surgeon: Kayleigh Romero Condition: Good Free Text/Narrative:: Intake & Output 05/30/19 05/31/19 05/31/19 22:59 06:59 14:59 Intake Total 700 Balance 700
[2019-05-31 09:10] VITALS: BP 131/85; PULSE 74
--- NOTE | 2019-05-31 09:23 | PCM.POSTAN ---
POST ANESTHESIA ASSESSMENT - MENTAL STATUS Mental Status: Alert, Oriented - VITAL SIGNS Vital Signs: Last Vital Signs Temp 97.2 F 05/31/19 07:17 Pulse 74 05/31/19 08:53 Resp 14 05/31/19 08:53 BP 131/85 05/31/19 08:53 Pulse Ox 98 05/31/19 08:53 - RESPIRATORY Respiratory Status: Respiratory Rate WNL, Airway Patent, O2 Saturation Stable - CARDIOVASCULAR CV Status: Pulse Rate WNL, Blood Pressure Stable - GASTROINTESTINAL GI Status: No Symptoms - POST OP HYDRATION Hydration Status: Adequate & Stable
--- NOTE | 2019-05-31 09:24 | PCM48HPAN ---
Post Anesthesia Note - EVALUATION WITHIN 48HRS OF ANESTHETIC Vital Signs in Normal Range: Yes Patient Participated in Evaluation: Yes Respiratory Function Stable: Yes Airway Patent: Yes Cardiovascular Function Stable: Yes Hydration Status Stable: Yes Pain Control Satisfactory: Yes Nausea and Vomiting Control Satisfactory: Yes Mental Status Recovered: Yes Vital Signs: Last Vital Signs Temp 97.2 F 05/31/19 07:17 Pulse 74 05/31/19 08:53 Resp 14 05/31/19 08:53 BP 131/85 05/31/19 08:53 Pulse Ox 98 05/31/19 08:53
--- NOTE | 2019-05-31 15:05 | OR ---
SURGEON: KAYLEIGH ROMERO MD DATE OF PROCEDURE: 05/31/2019 PREOPERATIVE DIAGNOSIS: History of colon polyps. POSTOPERATIVE DIAGNOSIS: Sigmoid colon polyp. PROCEDURE PERFORMED: Screening colonoscopy. PRIMARY SURGEON: Kayleigh Romero MD. ANESTHESIA: MAC. INSTRUMENT USED: Olympus colonoscope. EXTENT OF EXAM: To the cecum. PREPARATION: Good. LIMITATIONS: None. INDICATIONS FOR EXAMINATION: The patient is a 63-year-old female who presents for repeat colonoscopy. Her last one was 7 years ago, and she was found to have colon polyps. I explained the procedure; expected perioperative course; and risks including bleeding, infection, or damage to surrounding structures including perforation. The patient verbalized understanding and wishes to proceed. PROCEDURE IN DETAIL: The patient was brought into the endoscopy suite and placed in the left lateral decubitus position. A time-out was completed verifying the patient's name, age, date of , allergies, and procedure to be performed. Monitored anesthesia care was induced and continuous oxygen was provided via nasal cannula throughout the procedure. After adequate sedation was achieved, a digital rectal exam was performed. This exam was within normal limits. A well-lubricated colonoscope was inserted in the rectum and advanced under direct visualization to the level of the cecum. The cecum was identified by both visual and anatomic landmarks. A photograph was taken of the cecal cap as well as with the scope retroflexed within the cecum. The scope was then fully withdrawn while examining the color, texture, anatomy, and integrity of the mucosa from the cecum to the anal canal. The patient was found to have a small sessile polyp in the very distal sigmoid colon. This was removed in piecemeal fashion using cold biopsy forceps and sent to pathology, labeled as sigmoid colon polyp. The scope was then brought into the rectum and retroflexed to allow visualization of the anal canal opening. This appeared normal and a photograph was taken. Scope was then straightened out and fully withdrawn. Cecum to anus time was 7 minutes. The patient tolerated the procedure well and was transferred to the PACU in stable condition. ENDOSCOPIC DIAGNOSIS: Sigmoid colon polyp. RECOMMENDATIONS: Follow up in clinic in 2 weeks. JANET GRISSOM /[id number]
== END 2019-05-31 09:11 | disposition home or self-care (01) ==
LOC: MW.SDS 07:04
PROVIDERS: ATTEND Surgery
DX: Z12.11 Encounter for screening for malignant neoplasm of colon (principal); K63.5 Polyp of colon; K21.9 Gastro-esophageal reflux disease without esophagitis; E78.00 Pure hypercholesterolemia, unspecified; E66.9 Obesity, unspecified; F41.9 Anxiety disorder, unspecified; G25.81 Restless legs syndrome; G43.109 Migraine with aura, not intractable, without status migrainosus; G47.30 Sleep apnea, unspecified; M19.90 Unspecified osteoarthritis, unspecified site; Z88.6 Allergy status to analgesic agent; Z68.27 Body mass index [BMI] 27.0-27.9, adult; Z87.891 Personal history of nicotine dependence; Z86.010 Personal history of colon polyps; Z79.01 Long term (current) use of anticoagulants; Z79.899 Other long term (current) drug therapy
CPT/HCPCS: 45380; J2001; J2704; J3010; J3490; J7120; 00812; 88305

== ENCOUNTER 2021-10-10 15:55 | Emergency (ER) | payer BC ==
[2021-10-10] MEDS ORDERED: methylPREDNISolone Sodium Succinate 125 MG/2 ML SDV IM ONE (16:36)
[2021-10-10 17:06] VITALS: BP 148/87; PULSE 66
== END 2021-10-10 17:17 | disposition home or self-care (01) ==
LOC: MW.ED 15:55
DX: R21 Rash and other nonspecific skin eruption (principal); T36.0X5A Adverse effect of penicillins, initial encounter; E78.00 Pure hypercholesterolemia, unspecified; K21.9 Gastro-esophageal reflux disease without esophagitis; Z88.0 Allergy status to penicillin; Z88.8 Allergy status to other drugs, medicaments and biological substances; Z79.899 Other long term (current) drug therapy; Z87.891 Personal history of nicotine dependence
CPT/HCPCS: 96372; 99283; J2930